=== PATIENT | male | born 1950 | race Asian ===

== ENCOUNTER 2016-06-05 23:23 | Inpatient (IN) | payer MEDICARE, OTHER ==
[2016-06-05] MEDS ORDERED: METHYLPREDNISOLONE INJ 125 MG/2 ML SDV IV ONE (23:43)
[2016-06-05] MEDS ORDERED: IPRATROPIUM/ALBUTEROL 0.5-2.5 MG/3 ML AMPUL NEB ONE (23:43)
[2016-06-05] MEDS ORDERED: ALBUTEROL SULFATE 0.083% NEB 2.5 MG/3 ML AMPUL NEB ONE (23:43)
--- NOTE | 2016-06-05 23:53 | ER Document Report ---
ED Respiratory Problem - General Chief Complaint: Breathing Difficulty Stated Complaint: TROUBLE BREATHING Time seen by provider: 23:53 Mode of Arrival: Ambulatory Information source: Patient, Relative - TRAVEL OUTSIDE OF THE [place] IN LAST 30 DAYS: No - HPI Patient complains to provider of: Asthma, COPD, Cough, Short of breath Onset: This morning Duration: Worse/persistent Quality of pain: No pain Severity: Moderate Context: Hx COPD, Smoker Short of Breath: Moderate Chest pain/discomfort: Tightness Cough: Nonproductive At home treatment: Bronchodilators Associated symptoms: Congestion, Cough, Difficulty breathing, Short of breath, Wheezing Similar symptoms previously: Yes Recently seen / treated by doctor: No Notes: Patient is a 66-year-old male who is a smoker and has a reported history of asthma, who presents to the emergency room complaining of difficulty breathing with a dry cough and chest tightness that started early in the morning and worsened throughout the day, he has used albuterol at home with minimal relief, he denies any sick contacts, no recent travel - Related Data Allergies/Adverse Reactions: diphenhydramine [From Benadryl] Adverse Reaction (Intermediate, Verified 00:23) ibuprofen [From Motrin] Adverse Reaction (Intermediate, Verified 06/06/16 00:29) Bleeding Past Medical History - General Information source: Patient, Relative - - Social History Smoking Status: Current Every Day Smoker Frequency of alcohol use: None Drug Abuse: None Family History: Reviewed & Not Pertinent Renal/ Medical History: Denies: Hx Peritoneal Dialysis Review of Systems - Review of Systems Constitutional: No symptoms reported EENT: No symptoms reported Cardiovascular: No symptoms reported Respiratory: See HPI Gastrointestinal: No symptoms reported Genitourinary: No symptoms reported Male Genitourinary: No symptoms reported Musculoskeletal: No symptoms reported Skin: No symptoms reported Hematologic/Lymphatic: No symptoms reported Neurological/Psychological: No symptoms reported -: Yes All other systems reviewed and negative Physical Exam - Vital signs Vitals: Resp 24 H 06/05/16 23:30 Interpretation: Normal - General General appearance: Appears well, Alert - HEENT Head: Normocephalic, Atraumatic Eyes: Normal Pupils: PERRL - Respiratory Respiratory status: Respiratory distress, Labored, Tachypnea Chest status: Nontender Breath sounds: Decreased air movement, Nonproductive cough, Wheezing Chest palpation: Normal - Cardiovascular Rhythm: Regular Heart sounds: Normal auscultation Murmur: No - Abdominal Inspection: Normal, Other - Healed midline scar Distension: No distension Bowel sounds: Normal Tenderness: Nontender Organomegaly: No organomegaly - Back Back: Normal, Nontender - Extremities General upper extremity: Normal inspection, Nontender, Normal color, Normal ROM , Normal temperature General lower extremity: Normal inspection, Nontender, Normal color, Normal ROM , Normal temperature, Normal weight bearing. No: Christopher's sign - Neurological Neuro grossly intact: Yes Cognition: Normal Orientation: AAOx4 Samy Coma Scale Eye Opening: Spontaneous Samy Coma Scale Verbal: Oriented Samy Coma Scale Motor: Obeys Commands Samy Coma Scale Total: 15 Speech: Normal Motor strength normal: LUE, RUE, LLE, RLE Sensory: Normal - Psychological Associated symptoms: Normal affect, Normal mood - Skin Skin Temperature: Warm Skin Moisture: Dry Skin Color: Normal Course - Re-evaluation Re-evalutation: 06/06/16 02:50 Patient hypoxic and tachycardic on arrival with difficulty breathing that started earlier in the day and Crestor the day, symptoms likely result of smoking and COPD, however a CTA was performed to rule out a PE, no PE was seen but worsening diffuse interstitial lung markings consistent with chronic lung disease were seen, patient had multiple breathing treatments in the emergency room with moderate relief of symptoms, however still continues to have diffuse wheezing with a pulse ox in the 88-92 range, he did briefly remove his oxygen and his pulse ox dropped down to 85%, therefore patient was discussed with the hospitalist who agrees to admit for further evaluation and treatment - Vital Signs Vital signs: Temp Pulse Resp BP Pulse Ox 98.6 F 113 H 24 H 144/65 H 91 L 06/05/16 23:33 06/05/16 23:33 06/05/16 23:33 06/05/16 23:33 06/06/16 00:00 - Laboratory Result Diagrams: 06/06/16 00:15 06/06/16 00:15 Laboratory results interpreted by me: 06/06/16 06/06/16 00:15 00:15 WBC 12.8 H RBC 4.11 L Hgb 11.8 L Hct 37.8 L MCHC 31.1 L RDW 14.2 H Seg Neutrophils % 83.8 H Lymphocytes % 8.1 L Absolute Neutrophils 10.7 H BUN 23 H Calcium 10.4 H Creatine Kinase 544 H - Diagnostic Test Radiology reviewed: Image reviewed, Reports reviewed - EKG Interpretation by Me EKG shows normal: Sinus rhythm Rate: Tachycardia - Transfer of Care Care transferred to following provider: Dr. Montenegro Critical Care Note - Critical Care Note Total time excluding time spent on procedures (mins): 40 Comments: Patient arrived hypoxic and tachycardic, requiring multiple breathing treatments , close observation and admission for COPD exacerbation Discharge - Discharge Clinical Impression: COPD exacerbation Condition: Fair Disposition: ADMITTED INPATIENT Admitting Provider: Hospitalist Unit Admitted: Telemetry
[2016-06-06 00:37] LABS: VENOUS BLOOD BASE EXCESS 2.5 mmol/L; VENOUS BLOOD HCO3 29.2 mmol/L (20-32); VENOUS BLOOD PCO2 53.2 mmHg (35-63); VENOUS BLOOD PH 7.36 (7.30-7.42)
[2016-06-06 00:38] LABS: ABSOLUTE BASOPHILS # (AUTO) 0.1 10^3/uL (0.0-0.2); ABSOLUTE EOSINOPHILS # (AUTO) 0.1 10^3/uL (0.0-0.6); ABSOLUTE MONOCYTES (AUTO) 0.8 10^3/uL (0.1-1.4); ABSOLUTE NEUT (AUTO) 10.7 10^3/uL (1.7-8.2); BASOPHILS % (AUTO) 0.5 % (0-2); EOSINOPHILS % (AUTO) 1.2 % (0-6); HEMATOCRIT 37.8 % (37.9-51.0); HEMOGLOBIN 11.8 g/dL (13.5-17.0); HGB HCT DIFFERENCE -2.4; LYMPHOCYTES % (AUTO) 8.1 % (13-45); MEAN CORPUSCULAR HEMOGLOBIN 28.6 pg (27.0-33.4); MEAN CORPUSCULAR HGB CONC 31.1 g/dL (32.0-36.0); MEAN CORPUSCULAR VOLUME 92 fl (80-97); MONOCYTES % (AUTO) 6.4 % (3-13); RED BLOOD COUNT 4.11 10^6/uL (4.35-5.55); RED CELL DISTRIBUTION WIDTH 14.2 % (11.5-14.0); SEGMENTED NEUTROPHILS % (AUTO) 83.8 % (42-78); WHITE BLOOD COUNT 12.8 10^3/uL (4.0-10.5)
[2016-06-06 00:58] LABS: ALANINE AMINOTRANSFERASE 42 U/L (21-72); ALBUMIN 4.1 g/dL (3.5-5.0); ALKALINE PHOSPHATASE 73 U/L (38-126); ANION GAP 14 (5-19); ASPARTATE AMINO TRANSFERASE 30 U/L (17-59); BILIRUBIN,TOTAL 0.3 mg/dL (0.2-1.3); BLOOD UREA NITROGEN 23 mg/dL (7-20); CALCIUM 10.4 mg/dL (8.4-10.2); CARBON DIOXIDE 28 mmol/L (22-30); CHLORIDE 103 mmol/L (98-107); CREATINE KINASE 544 U/L (55-170); CREATININE RESULT 1.18 mg/dL (0.52-1.25); GLUCOSE 96 mg/dL (75-110); MAGNESIUM 1.7 mg/dL (1.6-2.3); POTASSIUM 4.4 mmol/L (3.6-5.0); SODIUM 144.7 mmol/L (137-145); TOTAL PROTEIN 6.9 g/dL (6.3-8.2)
[2016-06-06 01:14] LABS: CREATINE KINASE MB 2.89 ng/mL (<4.55); TROPONIN I 0.012 ng/mL
[2016-06-06] MEDS ORDERED: ALBUTEROL SULFATE 0.083% NEB 2.5 MG/3 ML AMPUL NEB ONE ×2 (01:22→02:34)
[2016-06-06] MEDS ORDERED: AZITHROMYCIN INJ 500 MG VIAL IV ONE (02:34)
[2016-06-06] MEDS ORDERED: IPRATROPIUM/ALBUTEROL 0.5-2.5 MG/3 ML AMPUL NEB ONE (02:34)
[2016-06-06] MEDS ORDERED: FENTANYL CITRATE INJ/PF 100 MCG/2 ML AMPUL ONE (03:21)
[2016-06-06] MEDS ORDERED: GLUCAGON,HUMAN RECOMB 1 MG INJ IM PRN (03:32)
[2016-06-06] MEDS ORDERED: DEXTROSE 40% GEL 15 GM TUBE PO PRN ×2 (03:32)
[2016-06-06] MEDS ORDERED: DEXTROSE 50%-WATER 25 GM/50 ML DISP.SYRIN IV PRN ×2 (03:32)
[2016-06-06] MEDS ORDERED: ACETAMINOPHEN 325 MG TABLET PO PRN (03:35)
[2016-06-06] MEDS ORDERED: GUAIFENESIN SYRP 200 MG/10 ML UDC PO PRN (03:35)
[2016-06-06] MEDS ORDERED: ALBUTEROL SULFATE 0.083% NEB 2.5 MG/3 ML AMPUL NEB PRN (03:35)
[2016-06-06] MEDS ORDERED: NICOTINE 14 MG/24 HR PATCH.TD24 TD PRN (03:36)
[2016-06-06] MEDS ORDERED: METHYLPREDNISOLONE INJ 125 MG/2 ML SDV IV ONE (03:45)
--- NOTE | 2016-06-06 03:55 | PDOC H&P ---
History of Present Illness Admission Date/PCP: 06/06/16 02:43 [facility] Patient complains of: difficulty breathing History of Present Illness: MARTÍN SILVA is a 66 year old male is known underlying asthma, having undergone COPD testing one week ago, with results still pending, along with half pack-a-day smoker, who presents to the emergency room for evaluation of above complaint. Patient has been discussed with emergency room physician who evaluated the patient. Has had a dry cough and mild chest discomfort for the past several days. However, over the last 24 hours, he has had progressive difficulty breathing, particularly noticeable with much of any exertion. Was in significant respiratory distress upon arrival in the emergency room, but has progressed nicely with treatment so far. However, still some wheezing, which he does on most days, and some shortness of breath, along with oxygen requirement. Hospitalist service contacted for admission. Subjective fever. No nausea vomiting or diarrhea. No antibiotics or hospital stay in the last 3 months. No prior intubation for respiratory distress. Mild chest tightness and discomfort when his shortness of breath is worse. None at present.. Laboratory results are listed in [facility] and are reviewed. X-ray summary results are listed below, with full report(s) reviewed. . EKG reviewed. Social history/personal habits: . Has children. Retired. Half-pack of cigarettes per day. No alcohol or illicit drug use. Allergies/adverse reactions are listed in [facility] and are reviewed. Home medications are reviewed by bottle review and discussion with patient and , who is present at his side with his approval, and [facility] Home medications initially autopopulated into [facility] may not accurately reflect patient's true medications, dosages, and/or frequencies. Compliant with medications. No recent medication changes. REVIEW OF SYSTEMS: Constitutional: See history and present illness. Eyes: No current vision complaints. ENT: No swallowing problems or complaints. No hearing problems or complaints. Pulmonary: See history and present illness. Cardiovascular: See history and present illness. Gastrointestinal: No current complaints, including nausea or vomiting. Skin: No current complaints, including rashes. Hematologic: No unusual easy bruising or bleeding. Neurologic: No current complaints, including numbness or tingling. Musculoskeletal: No current complaints, including painful joints. Psychiatric: No current complaints, including anxiety or depression. Endocrine: No current complaints, including polyuria. Genitourinary: No current complaints, including dysuria. PHYSICAL EXAMINATION: 5 feet 5 inches tall. 92.1 kg. Blood pressure 123/94. Pulse 118 and regular. Respirations are 22 and unlabored. 91% saturation on 2 L oxygen per nasal cannula. Temperature 98.6. Obese otherwise well-developed probable Samoan male, who appears to feel a bit under the weather, so to speak. Pleasant awake alert and cooperative however. mildly anxious, without agitation. Skin is warm and dry. No grossly obvious evidence of rash in areas of skin examined. No subcutaneous nodules palpated. ENT: Hearing grossly normal to normal conversation. Tongue midline on protrusion pink and slightly tacky. Eyes: No scleral icterus. Pupils equal and reactive to light at 4 mm. Ortley conjunctivae. Neck is supple and nontender to gentle active range of motion and palpation. Midline trachea. No palpable thyroid nodule mass enlargement or tenderness. Lymphatic: No palpable cervical or clavicular nodes. Neck and lymphatic exams limited by patient body habitus. Psychiatric: Reasonable insight into acute and chronic medical issues. Oriented to time location and why here. Lungs: Auscultation reveals equal breath sounds bilaterally. No use of accessory respiratory muscles. Faint brief expiratory wheezing bilaterally, with mild diffuse slightly coarse breath sounds. Cardiovascular: Heart regular rate and rhythm, without gallop murmur or rub. No carotid or abdominal aortic bruits. No ankle or pedal edema. palpable dorsalis pedis pulses. Abdomen: soft, obese, nontender with positive bowel sounds. Unable to adequately evaluate abdomen for masses or organomegaly due to body habitus. Extremities: Feet are warm and dry. No calf tenderness to compression. No grossly obvious visual evidence of calf swelling. Gentle manipulation of lower extremities fails to reveal any obvious evidence of injury or instability to knees hips or ankles. Neurologic: Moves upper extremities grossly normally. Patellar reflexes absent. Absent Babinski. Light touch is intact at feet. Dorsiflexion and plantarflexion of feet 5 / 5 and symmetric. Past Medical History Cardiac Medical History: Reports: Hypertension Pulmonary Medical History: Reports: Asthma Endocrine Medical History: Reports: Diabetes Mellitus Type 2 Past Surgical History Past Surgical History: Reports: Other - Segmental colectomy in the for colon cancer. Social History Information Source: Patient, Emergency Med Personnel, [facility] Records Lives with: Spouse/Significant other Smoking Status: Current Every Day Smoker Frequency of Alcohol Use: None Drugs: None - Advance Directive Resuscitation Status: Full Code Surrogate healthcare decision maker:: Family History Family History: Reviewed & Not Pertinent Parental Family History Reviewed: Yes Children Family History Reviewed: Yes Sibling(s) Family History Reviewed.: Yes Medication/Allergy Home Medications: Albuterol Sulfate [Proair HFA] 2 puff IH Q4HP PRN 06/06/16 Atorvastatin Calcium 40 mg PO QHS 06/06/16 Fexofenadine HCl 180 mg PO DAILY 06/06/16 Fluticasone/Salmeterol [Advair 250-50 Diskus] 1 puff IH BID 06/06/16 Metformin HCl [Metformin HCl ER] 500 mg PO BID 06/06/16 Montelukast Sodium 10 mg PO QHS 06/06/16 Tamsulosin HCl 0.8 mg PO DAILY 06/06/16 Benazepril HCl [Lotensin 20 mg Tablet] 40 mg PO QAM #60 tablet 06/08/16 Levalbuterol HCl [Xopenex Neb 1.25 mg/3 ml Ampul] 1.25 mg NEB Q4H #60 vial.neb 06/08/16 Levofloxacin [Levaquin 750 mg Tablet] 750 mg PO DAILY #5 tablet 06/08/16 Metoprolol Tartrate [Lopressor 25 mg Tablet] 25 mg PO Q12 #60 tab 06/08/16 Prednisone [Sterapred Ds] 1 pkg PO ASDIR PRN 12 Days 06/08/16 Tiotropium [place] [Spiriva Handihaler 18 mcg/dose (30 Dose)] 1 cap IH DAILY # 30 capsule 06/08/16 Allergies/Adverse Reactions: diphenhydramine [From Benadryl] Adverse Reaction (Intermediate, Verified 00:23) ibuprofen [From Motrin] Adverse Reaction (Intermediate, Verified 06/06/16 00:29) Bleeding Physical Exam Vital Signs: Temp Pulse Resp BP Pulse Ox 98.6 F 113 H 24 H 144/65 H 91 L 06/05/16 23:33 06/05/16 23:33 06/05/16 23:33 06/05/16 23:33 06/06/16 00:00 Results Impressions: Chest X-Ray 06/05/16 23:42 IMPRESSION: Worsened moderate chronic interstitial lung disease pattern. Chest/Abdomen CTA 06/06/16 01:22 IMPRESSION: 1. No evidence of pulmonary emboli. 2. Moderate chronic interstitial lung disease pattern. Interval worsening. 3. 1.9 cm right adrenal adenoma. Assessment & Plan - Diagnosis (1) Adrenal adenoma Qualifiers: Laterality: right Qualified Code(s): D35.01 - Benign neoplasm of right adrenal gland Is this a current diagnosis for this admission?: YesPlan: Outpatient follow-up by primary care provider. (2) Asthma exacerbation Is this a current diagnosis for this admission?: YesPlan: Patient will be admitted under COPD and asthma exacerbation protocol. Incentive spirometry twice a day. Scheduled DuoNeb's. PRN albuterol nebs Solu-Medrol Prevacid for gastritis prophylaxis. Antibiotics will consist of intravenous Zithromax along with Rocephin.. I strongly encouraged patient to notify staff should patient feel that respiratory status is worsening. Patient is a full code. I have strongly encouraged patient not to get out of bed without notifying staff , , to avoid a fall with injury. Knee high SCDs for DVT prophylaxis, along with subcutaneous Lovenox Impression and plans were discussed with patient, and , both of whom concur. Time spent in evaluation and management of patient: 70 minutes. (3) Diabetes mellitus type 2 in obese Is this a current diagnosis for this admission?: YesPlan: Ice chips at the present time. Advance diet as tolerated. Resume home medications as appropriate once these have been reviewed. We'll hold metformin given his CT angiogram. Accu-Cheks with appropriate sliding scale coverage. (4) HTN (hypertension) Qualifiers: Hypertension type: essential hypertension Qualified Code(s): I10 - Essential (primary) hypertension Is this a current diagnosis for this admission?: YesPlan: Resume home medications as appropriate once these have been reviewed. (5) Hyperlipidemia Qualifiers: Hyperlipidemia type: unspecified Qualified Code(s): E78.5 - Hyperlipidemia, unspecified Is this a current diagnosis for this admission?: YesPlan: Resume home medications as appropriate once these have been reviewed. (6) Tobacco dependency Is this a current diagnosis for this admission?: YesPlan: When necessary nicotine patch. (7) COPD exacerbation Is this a current diagnosis for this admission?: Yes - Inpatient Certification Based on my medical assessment, after consideration of the patient's comorbidities, presenting symptoms, or acuity I expect that the services needed warrant INPATIENT care.: Yes I certify that my determination is in accordance with my understanding of Medicare's requirements for reasonable and necessary INPATIENT services [42 CFR 412.3e].: Yes Medical Necessity: Need Close Monitoring Due to Risk of Patient Decompensation, Need For IV Fluids, Need For Continuous Telemetry Monitoring, Need for Nebulizer Therapy and Monitoring of Response, Need for IV Antibiotics, Risk of Complication if Not Cared For in Hospital Post Hospital Care: D/C or Transfer Summary
[2016-06-06] MEDS ORDERED: CEFTRIAXONE 1 GM/D5W RTU 1 GM/50 ML RTUPB IV ONE (04:00)
[2016-06-06 04:07] LABS: VENOUS BLOOD BASE EXCESS -0.7 mmol/L; VENOUS BLOOD HCO3 24.7 mmol/L (20-32); VENOUS BLOOD PCO2 43.6 mmHg (35-63); VENOUS BLOOD PH 7.37 (7.30-7.42)
[2016-06-06] MEDS: LANSOPRAZOLE 30 MG TAB.RAP.DR PO SCH (05:58)
[2016-06-06] MEDS: 1/2 NORMAL SALINE 1,000 ML IV PRN ×2 (06:02→18:50)
[2016-06-06] MEDS: INSULIN LISPRO 100 UNIT/ML 3 ML VIAL SUBCUT PRN ×2 (06:20→17:22)
[2016-06-06] MEDS ORDERED: (PENDING PHARMACY ID) (Amlodipine Besylate/Benazepril [Amlodipine-Benazepril 10-40 Mg] 1 C PO SCH (08:00)
[2016-06-06] MEDS: IPRATROPIUM/ALBUTEROL 0.5-2.5 MG/3 ML AMPUL NEB SCH ×3 (08:49→20:41)
[2016-06-06] MEDS: ENOXAPARIN SODIUM INJ 40 MG/0.4 ML DISP.SYRIN SUBCUT SCH (08:59)
[2016-06-06] MEDS: FLUTICASONE/SALMETEROL DISKUS 250-50 MCG/DOSE IH SCH ×2 (09:01→21:10)
[2016-06-06] MEDS: METHYLPREDNISOLONE INJ 125 MG/2 ML SDV IV SCH ×2 (09:05→17:10)
[2016-06-06] MEDS: BENAZEPRIL HCL 20 MG TABLET PO SCH (09:06)
[2016-06-06] MEDS: AMLODIPINE BESYLATE 10 MG TABLET PO SCH (09:07)
[2016-06-06] MEDS: TAMSULOSIN HCL 0.4 MG CAP.SR.24H PO SCH (09:08)
--- NOTE | 2016-06-06 09:23 | EKG REPORT ---
SEVERITY:- OTHERWISE NORMAL ECG - SINUS TACHYCARDIA : Confirmed by: Keya Mckinley MD 06-Jun-2016 09:22:49
[2016-06-06] MEDS ORDERED: (PENDING PHARMACY ID) (Fexofenadine Hcl [Fexofenadine Hcl] 180 MG) PO SCH (10:00)
[2016-06-06] MEDS: CETIRIZINE 10 MG TABLET PO SCH (14:45)
[2016-06-06] MEDS: AZITHROMYCIN 500 MG in DEXTROSE 5%-WATER 250 ML IV SCH (14:46)
[2016-06-06] MEDS: ATORVASTATIN CALCIUM 40 MG TABLET PO SCH (21:09)
[2016-06-06] MEDS: CEFTRIAXONE 1 GM/D5W RTU 1 GM/50 ML RTUPB IV SCH (21:09)
[2016-06-06] MEDS: MONTELUKAST SODIUM 10 MG TABLET PO SCH (21:10)
[2016-06-07] MEDS: METHYLPREDNISOLONE INJ 125 MG/2 ML SDV IV SCH ×2 (02:19→10:14)
[2016-06-07] MEDS: 1/2 NORMAL SALINE 1,000 ML IV PRN (03:54)
[2016-06-07 05:18] LABS: HEMATOCRIT 36.5 % (37.9-51.0); HEMOGLOBIN 11.7 g/dL (13.5-17.0); HGB HCT DIFFERENCE -1.4; MEAN CORPUSCULAR HEMOGLOBIN 29.1 pg (27.0-33.4); MEAN CORPUSCULAR HGB CONC 32.2 g/dL (32.0-36.0); MEAN CORPUSCULAR VOLUME 91 fl (80-97); RED BLOOD COUNT 4.03 10^6/uL (4.35-5.55); RED CELL DISTRIBUTION WIDTH 14.6 % (11.5-14.0); WHITE BLOOD COUNT 16.6 10^3/uL (4.0-10.5)
[2016-06-07 05:34] LABS: ANION GAP 13 (5-19); BLOOD UREA NITROGEN 24 mg/dL (7-20); CALCIUM 10.1 mg/dL (8.4-10.2); CARBON DIOXIDE 27 mmol/L (22-30); CHLORIDE 110 mmol/L (98-107); CREATININE RESULT 1.14 mg/dL (0.52-1.25); GLUCOSE 163 mg/dL (75-110); POTASSIUM 4.7 mmol/L (3.6-5.0); SODIUM 149.7 mmol/L (137-145)
[2016-06-07] MEDS: LANSOPRAZOLE 30 MG TAB.RAP.DR PO SCH (05:46)
[2016-06-07 05:50] LABS: ANISOCYTOSIS SLIGHT; BAND NEUTROPHILS % (MANUAL) 5 % (3-5); BASOPHILS % (MANUAL) 0 % (0-2); EOSINOPHILS % (MANUAL) 0 % (0-6); LYMPHOCYTES % (MANUAL) 4 % (13-45); OVALOCYTES SLIGHT; TOTAL CELLS COUNTED 100; TOXIC GRANULATION SLIGHT
[2016-06-07] MEDS: ENOXAPARIN SODIUM INJ 40 MG/0.4 ML DISP.SYRIN SUBCUT SCH (07:49)
[2016-06-07] MEDS: INSULIN LISPRO 100 UNIT/ML 3 ML VIAL SUBCUT PRN ×3 (07:49→18:04)
[2016-06-07] MEDS: AMLODIPINE BESYLATE 10 MG TABLET PO SCH (07:50)
[2016-06-07] MEDS: IPRATROPIUM/ALBUTEROL 0.5-2.5 MG/3 ML AMPUL NEB SCH (08:26)
[2016-06-07] MEDS ORDERED: BENAZEPRIL HCL 20 MG TABLET PO ONE (09:00)
[2016-06-07] MEDS ORDERED: AMLODIPINE BESYLATE 10 MG TABLET PO ONE (09:00)
[2016-06-07] MEDS: AZITHROMYCIN 500 MG in DEXTROSE 5%-WATER 250 ML IV SCH (10:14)
[2016-06-07] MEDS: FLUTICASONE/SALMETEROL DISKUS 250-50 MCG/DOSE IH SCH ×2 (10:14→21:58)
[2016-06-07] MEDS: TAMSULOSIN HCL 0.4 MG CAP.SR.24H PO SCH (10:14)
[2016-06-07] MEDS: CETIRIZINE 10 MG TABLET PO SCH (10:21)
[2016-06-07] MEDS ORDERED: LEVALBUTEROL HCL NEB 1.25 MG/3 ML AMPUL NEB PRN (11:10)
[2016-06-07] MEDS ORDERED: 1/2 NORMAL SALINE 1,000 ML IV PRN (11:14)
--- NOTE | 2016-06-07 11:22 | PDOC PROGRESS REPORT ---
Subjective Progress Note for:: 06/07/16 Subjective:: Patient is breathing better. Wheezing is less. Shortness of breath improved by 50%. Positive cough but no pleurisy. No chest pressure. No diarrhea, no chills or fever. No nausea vomiting abdominal pain. Physical Exam Vital Signs: Temp Pulse Resp BP Pulse Ox 98.2 F 104 H 16 142/85 H 92 06/07/16 07:36 06/07/16 08:26 06/07/16 08:26 06/07/16 07:36 06/07/16 07:36 Intake & Output 06/06/16 06/07/16 06/08/16 06:59 06:59 06:59 Intake Total 3949 Output Total 650 Balance 3299 Weight 87 kg General appearance: PRESENT: no acute distress, obese Head exam: PRESENT: normocephalic Eye exam: PRESENT: EOMI, PERRLA Mouth exam: PRESENT: moist, neck supple Neck exam: ABSENT: JVD Respiratory exam: PRESENT: wheezes - Minimal bilateral, other - Air entry is fair to good. Cardiovascular exam: PRESENT: RRR, tachycardia GI/Abdominal exam: PRESENT: normal bowel sounds, soft. ABSENT: distended, tenderness Extremities exam: ABSENT: pedal edema Neurological exam: PRESENT: alert, awake, oriented to situation Skin exam: PRESENT: dry, warm. ABSENT: cyanosis Results Laboratory Results: 06/07/16 04:54 06/07/16 04:54 06/07/16 06/07/16 04:54 04:54 WBC 16.6 H RBC 4.03 L Hgb 11.7 L Hct 36.5 L MCV 91 MCH 29.1 MCHC 32.2 RDW 14.6 H Plt Count 274 Seg Neutrophils % Not Reportable Lymphocytes % Not Reportable Monocytes % Not Reportable Eosinophils % Not Reportable Basophils % Not Reportable Absolute Neutrophils Not Reportable Absolute Lymphocytes Not Reportable Absolute Monocytes Not Reportable Absolute Eosinophils Not Reportable Absolute Basophils Not Reportable Sodium 149.7 H Potassium 4.7 Chloride 110 H Carbon Dioxide 27 Anion Gap 13 BUN 24 H Creatinine 1.14 Est GFR ( Amer) > 60 Est GFR (Non-Af Amer) > 60 Glucose 163 H Calcium 10.1 Impressions: Chest X-Ray 06/05/16 23:42 IMPRESSION: Worsened moderate chronic interstitial lung disease pattern. Chest/Abdomen CTA 06/06/16 01:22 IMPRESSION: 1. No evidence of pulmonary emboli. 2. Moderate chronic interstitial lung disease pattern. Interval worsening. 3. 1.9 cm right adrenal adenoma. Assessment & Plan - Diagnosis (1) COPD exacerbation Is this a current diagnosis for this admission?: Yes (2) Interstitial lung disease Is this a current diagnosis for this admission?: Yes (3) Adrenal adenoma Qualifiers: Laterality: right Qualified Code(s): D35.01 - Benign neoplasm of right adrenal gland Is this a current diagnosis for this admission?: Yes (4) Diabetes mellitus type 2 in obese Is this a current diagnosis for this admission?: Yes (5) HTN (hypertension) Qualifiers: Hypertension type: essential hypertension Qualified Code(s): I10 - Essential (primary) hypertension Is this a current diagnosis for this admission?: Yes (6) Hyperlipidemia Qualifiers: Hyperlipidemia type: unspecified Qualified Code(s): E78.5 - Hyperlipidemia, unspecified Is this a current diagnosis for this admission?: Yes - Time Time Spent with patient: 25-34 minutes - Plan Summary Plan Summary: Patient is wanting to go home. I advised him to stay for an order today and hopefully by tomorrow we will be able to. We are going to switch the patient to oral steroids. Discontinue albuterol as switched to Xopenex. Continue ipratropium. Decrease intravenous fluids. Add Spiriva. Continue supportive care.
[2016-06-07] MEDS ORDERED: PREDNISONE 20 MG TABLET PO ONE (13:00)
[2016-06-07] MEDS: IPRATROPIUM BROMIDE 0.02% NEB 0.5 MG/2.5 ML AMPUL NEB SCH ×2 (14:19→20:05)
[2016-06-07] MEDS: LEVALBUTEROL HCL NEB 1.25 MG/3 ML AMPUL NEB SCH ×2 (14:19→20:05)
[2016-06-07] MEDS: METOPROLOL TARTRATE 25 MG TABLET PO SCH (20:46)
[2016-06-07] MEDS: ATORVASTATIN CALCIUM 40 MG TABLET PO SCH (21:58)
[2016-06-07] MEDS: MONTELUKAST SODIUM 10 MG TABLET PO SCH (21:58)
[2016-06-07] MEDS: CEFTRIAXONE 1 GM/D5W RTU 1 GM/50 ML RTUPB IV SCH (21:59)
[2016-06-08] MEDS: METOPROLOL TARTRATE 25 MG TABLET PO SCH ×2 (01:17→05:37)
[2016-06-08] MEDS: LEVALBUTEROL HCL NEB 1.25 MG/3 ML AMPUL NEB SCH ×2 (02:15→08:21)
[2016-06-08] MEDS: IPRATROPIUM BROMIDE 0.02% NEB 0.5 MG/2.5 ML AMPUL NEB SCH ×2 (02:15→08:20)
[2016-06-08] MEDS: LANSOPRAZOLE 30 MG TAB.RAP.DR PO SCH (05:38)
[2016-06-08] MEDS: BENAZEPRIL HCL 20 MG TABLET PO SCH (08:14)
[2016-06-08] MEDS: ENOXAPARIN SODIUM INJ 40 MG/0.4 ML DISP.SYRIN SUBCUT SCH (08:14)
[2016-06-08 09:16] VITALS: BP 128/86
[2016-06-08] MEDS: CETIRIZINE 10 MG TABLET PO SCH (09:54)
[2016-06-08] MEDS: FLUTICASONE/SALMETEROL DISKUS 250-50 MCG/DOSE IH SCH (09:54)
[2016-06-08] MEDS: TAMSULOSIN HCL 0.4 MG CAP.SR.24H PO SCH (09:54)
[2016-06-08] MEDS: AZITHROMYCIN 500 MG in DEXTROSE 5%-WATER 250 ML IV SCH (09:55)
--- NOTE | 2016-06-08 09:55 | PDOC DISCHARGE SUMMARY ---
General - Admit/Disc Date/PCP Admission Date/Primary Care Provider: 06/06/16 03:35 Discharge Date: 06/08/16 - Discharge Diagnosis (1) COPD exacerbation Is this a current diagnosis for this admission?: Yes (2) Interstitial lung disease Is this a current diagnosis for this admission?: Yes (3) Adrenal adenoma Is this a current diagnosis for this admission?: Yes (4) Diabetes mellitus type 2 in obese Is this a current diagnosis for this admission?: Yes (5) HTN (hypertension) Is this a current diagnosis for this admission?: Yes (6) Hyperlipidemia Is this a current diagnosis for this admission?: Yes - Additional Information Resuscitation Status: Full Code Discharge Diet: Cardiac - low-fat low-salt, Diabetic - no concentrated sweets Discharge Activity: Activity As Tolerated, Balance Activity w/Rest Home Medications: Albuterol Sulfate [Proair HFA] 2 puff IH Q4HP PRN 06/06/16 Atorvastatin Calcium 40 mg PO QHS 06/06/16 Fexofenadine HCl 180 mg PO DAILY 06/06/16 Fluticasone/Salmeterol [Advair 250-50 Diskus] 1 puff IH BID 06/06/16 Metformin HCl [Metformin HCl ER] 500 mg PO BID 06/06/16 Montelukast Sodium 10 mg PO QHS 06/06/16 Tamsulosin HCl 0.8 mg PO DAILY 06/06/16 Benazepril HCl [Lotensin 20 mg Tablet] 40 mg PO QAM #60 tablet 06/08/16 Levalbuterol HCl [Xopenex Neb 1.25 mg/3 ml Ampul] 1.25 mg NEB Q4H #60 vial.neb 06/08/16 Levofloxacin [Levaquin 750 mg Tablet] 750 mg PO DAILY #5 tablet 06/08/16 Metoprolol Tartrate [Lopressor 25 mg Tablet] 25 mg PO Q12 #60 tab 06/08/16 Prednisone [Sterapred Ds] 1 pkg PO ASDIR PRN 12 Days 06/08/16 Tiotropium [place] [Spiriva Handihaler 18 mcg/dose (30 Dose)] 1 cap IH DAILY # 30 capsule 06/08/16 Additional Information: Follow-up final report of sputum culture and blood culture as outpatient with primary care physician or Dr. Stephens History of Present Illness Patient complains of: Shortness of breath History of Present Illness: MARTÍN SILVA is a 66 year old male with history of asthma and diabetes hypertension and a chronic smoker presents to the hospital with shortness of breath. There is associated coughing and wheezing. Patient has significant shortness of breath on exertion. Patient was recently tested for COPD and result is pending. For details please refer to history and physical examination performed by the admitting physician. Hospital Course Hospital Course: The patient was admitted to [facility]. Supplemental oxygen was given. Intravenous steroids and [id number] nebulizer was given. Intravenous antibiotic was likewise started. Patient improved. Patient however has tachycardia and the patient has dyspnea on exertion and noted increasing heart rate with activity. His albuterol was shifted to Xopenex. His Norvasc was shifted to metoprolol. Heart rate improved dyspnea on exertion improved significantly as well. Patient reports improvement. Wheezing has resolved. Patient wanted to go home and continue treatment on an outpatient basis. The rest of the hospital stays essentially unremarkable. Patient was discharged home with above instructions. Physical Exam Vital Signs: Temp Pulse Resp BP Pulse Ox 98.0 F 76 15 128/86 H 90 L 06/08/16 08:12 06/08/16 08:20 06/08/16 08:20 06/08/16 08:12 06/08/16 08:20 Intake & Output 06/07/16 06/08/16 06/09/16 06:59 06:59 06:59 Intake Total 3949 6391 Output Total 650 Balance 3299 6391 Weight 87 kg 89.1 kg General appearance: PRESENT: no acute distress, cooperative Head exam: PRESENT: normocephalic Eye exam: PRESENT: EOMI, PERRLA Mouth exam: PRESENT: moist, neck supple Neck exam: ABSENT: JVD Respiratory exam: PRESENT: clear to auscultation marian. ABSENT: rhonchi, wheezes Cardiovascular exam: PRESENT: RRR. ABSENT: gallop GI/Abdominal exam: PRESENT: normal bowel sounds, soft. ABSENT: tenderness Extremities exam: ABSENT: pedal edema Psychiatric exam: PRESENT: normal mood Skin exam: PRESENT: dry, warm. ABSENT: cyanosis Results Laboratory Results: 06/07/16 04:54 06/07/16 04:54 Impressions: Chest X-Ray 06/05/16 23:42 IMPRESSION: Worsened moderate chronic interstitial lung disease pattern. Chest/Abdomen CTA 06/06/16 01:22 IMPRESSION: 1. No evidence of pulmonary emboli. 2. Moderate chronic interstitial lung disease pattern. Interval worsening. 3. 1.9 cm right adrenal adenoma. Qualifiers PATEINT BEING DISCHARGED WITH ANY OF THE FOLLOWING DIAGNOSIS?: No Plan Discharge Plan: Follow-up with primary care physician in one week. Follow-up with pulmonary as outpatient in 1-2 weeks. Time Spent: Less than 30 Minutes
[2016-06-08] MEDS ORDERED: PREDNISONE 20 MG TABLET PO SCH (10:00)
== END 2016-06-08 11:03 | disposition home or self-care (01) | DRG 191 ==
LOC: ER 23:23 → UNDOADMIN 06-06 02:43 → EH 06-06 02:43 → 3W 06-06 14:30
PROVIDERS: ADMIT Family Medicine; ATTEND Family Medicine
PROC: 3E0F73Z Introduction of Anti-inflammatory into Respiratory Tract, Via Natural or Artificial Opening (ICD-10-PCS; principal; 2016-06-06)
DX: J44.1 Chronic obstructive pulmonary disease with (acute) exacerbation (principal); J45.901 Unspecified asthma with (acute) exacerbation; J84.9 Interstitial pulmonary disease, unspecified; E11.9 Type 2 diabetes mellitus without complications; I10 Essential (primary) hypertension; E78.5 Hyperlipidemia, unspecified; F17.200 Nicotine dependence, unspecified, uncomplicated; D35.01 Benign neoplasm of right adrenal gland; Z79.899 Other long term (current) drug therapy; E66.9 Obesity, unspecified; Z68.32 Body mass index [BMI] 32.0-32.9, adult; Z90.49 Acquired absence of other specified parts of digestive tract; Z85.038 Personal history of other malignant neoplasm of large intestine; Z88.6 Allergy status to analgesic agent; Z88.8 Allergy status to other drugs, medicaments and biological substances
CPT/HCPCS: 36415; 71010; 71275; 80048; 80053; 82550; 82553; 82803; 82962; 83735; 84484; 85025; 87040; 87070; 87077; 87205; 87804; 93005; 93010; 94640; 94799; 96374; 99291; J0456; J0696; J1650; J1815; J2930; J3490; J7060; J7512; J7620

== ENCOUNTER → 2016-08-07 | Outpatient (CLI) | payer MEDICARE, OTHER ==
[2016-08-07 11:45] LABS: APPEARANCE,URINE CLEAR; BILIRUBIN,URINE NEGATIVE (NEGATIVE); GLUCOSE, URINE NEGATIVE (NEGATIVE); KETONES,URINE NEGATIVE (NEGATIVE); LEUKOCYTE ESTERASE,URINE NEGATIVE (NEGATIVE); NITRITE,URINE NEGATIVE (NEGATIVE); PROTEIN,URINE NEGATIVE (NEGATIVE); URINE SPECIFIC GRAVITY 1.003; UROBILINOGEN,URINE NEGATIVE mg/dL (<2.0)
[2016-08-07 11:48] LABS: HEMATOCRIT 37.7 % (37.9-51.0); HEMOGLOBIN 12.5 g/dL (13.5-17.0); HGB HCT DIFFERENCE -0.2; MEAN CORPUSCULAR HEMOGLOBIN 29.1 pg (27.0-33.4); MEAN CORPUSCULAR HGB CONC 33.1 g/dL (32.0-36.0); MEAN CORPUSCULAR VOLUME 88 fl (80-97); RED BLOOD COUNT 4.28 10^6/uL (4.35-5.55); RED CELL DISTRIBUTION WIDTH 14.1 % (11.5-14.0); WHITE BLOOD COUNT 11.7 10^3/uL (4.0-10.5)
[2016-08-07 12:17] LABS: ANION GAP 15 (5-19); BLOOD UREA NITROGEN 23 mg/dL (7-20); CALCIUM 10.6 mg/dL (8.4-10.2); CARBON DIOXIDE 25 mmol/L (22-30); CHLORIDE 107 mmol/L (98-107); CREATININE RESULT 1.18 mg/dL (0.52-1.25); GLUCOSE 119 mg/dL (75-110); POTASSIUM 3.9 mmol/L (3.6-5.0); SODIUM 146.7 mmol/L (137-145)
[2016-08-08 10:37] LABS: CREATININE URINE 22.5 mg/dL (Not Estab.)
== END ==
LOC: OD 10:30
PROVIDERS: ATTEND Internal Medicine Nephrology
DX: I12.9 Hypertensive chronic kidney disease with stage 1 through stage 4 chronic kidney disease, or unspecified chronic kidney disease (principal); N18.3 Chronic kidney disease, stage 3 (moderate); R80.9 Proteinuria, unspecified; E11.9 Type 2 diabetes mellitus without complications
CPT/HCPCS: 36415; 80048; 81001; 82570; 84156; 85027

== ENCOUNTER 2018-01-20 17:21 | Emergency (ER) | payer MEDICARE, OTHER ==
[2018-01-20] MEDS ORDERED: DIAZEPAM 5 MG TABLET PO ONE ×2 (17:42→19:44)
[2018-01-20] MEDS ORDERED: MECLIZINE HCL 25 MG TABLET PO ONE (17:42)
[2018-01-20] MEDS ORDERED: NORMAL SALINE 500 ML IV ONE (17:42)
--- NOTE | 2018-01-20 17:46 | ER Document Report ---
ED General - General Stated Complaint: DIZZINESS/VOMITING Time Seen by Provider: 01/20/18 17:29 Mode of Arrival: Ambulatory Information source: Patient Notes: 67-year-old male with hypertension, type 2 diabetes, COPD, asthma presents via EMS with complaint of dizziness, nausea and vomiting. Patient's is at the bedside and provides the majority of the history because the patient is hard of hearing. She states that patient has had intermittent episodes of dizziness over the last 3 days. She states that he says that he feels like the room is spinning. Patient does state that it is worse when he turns to his left side or sits up. Today the dizziness worsened and the patient had a large episode of emesis which was nonbloody. The was unable to get him to the car so she called EMS. Patient denies recent illness, prior similar symptoms, ear pain , rhinorrhea. Shortness of breath, chest pain, abdominal pain. He has been otherwise well. TRAVEL OUTSIDE OF THE [place] IN LAST 30 DAYS: No - HPI Onset: Just prior to arrival Onset/Duration: Sudden Quality of pain: No pain Severity: None Associated symptoms: Nausea, Vomiting. denies: Chest pain, Shortness of breath Exacerbated by: Movement Relieved by: Remaining still Similar symptoms previously: No Recently seen / treated by doctor: No - Related Data Allergies/Adverse Reactions: diphenhydramine [From Benadryl] Adverse Reaction (Intermediate, Verified 00:23) ibuprofen [From Motrin] Adverse Reaction (Intermediate, Verified 06/06/16 00:29) Bleeding Past Medical History - General Information source: Patient, Relative, [facility] Records - Social History Smoking Status: Former Smoker Frequency of alcohol use: None Drug Abuse: None Lives with: Spouse/Significant other Family History: Reviewed & Not Pertinent Patient has suicidal ideation: No Patient has homicidal ideation: No - Past Medical History Cardiac Medical History: Reports: Hx Hypertension Pulmonary Medical History: Reports: Hx Asthma Endocrine Medical History: Reports: Hx Diabetes Mellitus Type 2 Renal/ Medical History: Denies: Hx Peritoneal Dialysis Past Surgical History: Reports: Other - Segmental colectomy in the for colon cancer. - Immunizations Hx Diphtheria, Pertussis, Tetanus Vaccination: Yes Review of Systems - Review of Systems Notes: REVIEW OF SYSTEMS: CONSTITUTIONAL : Denies fever, chills, or sweats. Denies recent illness. Denies weight loss, recent hospitalizations. EENT: Denies visual changes, eye pain. Denies nasal or sinus congestion or discharge. Denies sore throat, oral lesions, difficulty swallowing. CARDIOVASCULAR: Denies chest pain. Denies palpitations. Denies lower extremity edema. RESPIRATORY: Denies cough, cold, or chest congestion. Denies shortness of breath, wheezing. GASTROINTESTINAL: Denies abdominal pain or distention. Denies diarrhea. Denies blood in vomitus, stools, or per rectum. Denies black, tarry stools. Denies constipation. GENITOURINARY: Denies difficulty urinating, painful urination, frequency, blood in urine, or vaginal discharge. MUSCULOSKELETAL: Denies back or neck pain or stiffness. Denies joint pain or swelling. SKIN: Denies rash, lesions or sores. HEMATOLOGIC : Denies easy bruising or bleeding. LYMPHATIC: Denies swollen glands. NEUROLOGICAL: Denies confusion or altered mental status. Denies passing out or loss of consciousness. Denies lightheadedness. Denies headache. Denies weakness or paralysis. Denies problems difficulty with ambulation, slurred speech. Denies sensory loss, numbness, or tingling. Denies seizures. PSYCHIATRIC: Denies anxiety or stress. Denies depression, suicidal ideation, or homicidal ideation. Denies visual or auditory hallucinations. Physical Exam - Vital signs Vitals: Resp BP Pulse Ox 17 161/85 H 89 L 01/20/18 17:27 01/20/18 17:27 01/20/18 17:27 - Notes Notes: PHYSICAL EXAMINATION: GENERAL: Well-appearing, well-nourished and in no acute distress. HEAD: Atraumatic, normocephalic. EYES: Pupils equal round and reactive to light, extraocular movements intact, sclera anicteric, conjunctiva are normal. Horizontal nystagmus. ENT: Nares patent, oropharynx clear without exudates. Moist mucous membranes. NECK: Normal range of motion, supple without lymphadenopathy LUNGS: Breath sounds clear to auscultation bilaterally and equal. No wheezes rales or rhonchi. HEART: Regular rate and rhythm without murmurs ABDOMEN: Soft, nontender, nondistended abdomen. No guarding, no rebound. No masses appreciated. Musculoskeletal: Normal range of motion, no pitting or edema. No cyanosis. NEUROLOGICAL: Cranial nerves grossly intact. Normal speech, normal gait. Normal sensory, motor exams PSYCH: Normal mood, normal affect. SKIN: Warm, Dry, normal turgor, no rashes or lesions noted. Course - Re-evaluation Re-evalutation: 01/20/18 21:09 Laboratory 01/20/18 01/20/18 01/20/18 17:28 17:28 19:30 WBC 10.5 RBC 4.63 Hgb 13.5 Hct 41.6 MCV 90 MCH 29.3 MCHC 32.6 RDW 15.2 H Plt Count 308 Seg Neutrophils % 67.9 Lymphocytes % 22.8 Monocytes % 6.2 Eosinophils % 2.5 Basophils % 0.6 Absolute Neutrophils 7.1 Absolute Lymphocytes 2.4 Absolute Monocytes 0.7 Absolute Eosinophils 0.3 Absolute Basophils 0.1 Sodium 146.1 H Potassium 4.0 Chloride 106 Carbon Dioxide 26 Anion Gap 14 BUN 23 H Creatinine 1.14 Est GFR ( Amer) > 60 Est GFR (Non-Af Amer) > 60 Glucose 138 H Calcium 10.1 Total Bilirubin 0.3 Direct Bilirubin 0.3 Neonat Total Bilirubin Not Reportable Neonat Direct Bilirubin Not Reportable Neonat Indirect Bili Not Reportable AST 27 ALT 45 Alkaline Phosphatase 81 Total Protein 7.8 Albumin 4.5 Urine Color STRAW Urine Appearance CLEAR Urine pH 7.0 Ur Specific [place] 1.008 Urine Protein 100 H Urine Glucose (UA) NEGATIVE Urine Ketones NEGATIVE Urine Blood MODERATE H Urine Nitrite NEGATIVE Urine Bilirubin NEGATIVE Urine Urobilinogen NEGATIVE Ur Leukocyte Esterase NEGATIVE Urine WBC (Auto) 0 Urine RBC (Auto) 20 U Hyaline Cast (Auto) 1 Urine Mucus (Auto) RARE Urine Ascorbic Acid NEGATIVE Neck CTA 01/20/18 00:00 IMPRESSION: NORMAL CTA OF THE EXTRA-CRANIAL CAROTID AND VERTEBRAL ARTERIES. Head CTA 01/20/18 17:43 IMPRESSION: NO CTA EVIDENCE OF STENOSIS OR ANEURYSM OF THE [place]. 67-year-old male with hypertension, type 2 diabetes, COPD, asthma presents via EMS with complaint of dizziness, nausea and vomiting. Patient's is at the bedside and provides the majority of the history because the patient is hard of hearing. She states that patient has had intermittent episodes of dizziness over the last 3 days. She states that he says that he feels like the room is spinning. Patient does state that it is worse when he turns to his left side or sits up. Today the dizziness worsened and the patient had a large episode of emesis which was nonbloody. Vital signs stable upon arrival. Patient does not appear toxic or dehydrated. He does appear to be uncomfortable. Patient with horizontal nystagmus. Normal neurologic exam. She received IV fluids, meclizine, Valium. CTA of the head and neck were obtained and within normal limits. CBC shows no leukocytosis or anemia. CMP shows mild elevation of glucose. Urinalysis does show hematuria which the patient reports is chronic. Patient reevaluated and reports resolution of his dizziness. He is ambulating without difficulty. He is tolerating fluids. Patient provided the opportunity to ask questions, and express concerns. Discharge instructions discussed. Patient is agreeable with discharge home. Return indications explained and discussed with the patient who displays understanding. Patient encouraged to return to the emergency department immediately with any concerns. 01/20/18 23:34 01/20/18 23:34 - Vital Signs Vital signs: Temp Pulse Resp BP Pulse Ox 17 124/91 H 93 01/20/18 21:31 01/20/18 21:32 01/20/18 21:32 - Laboratory Result Diagrams: 01/20/18 17:28 01/20/18 17:28 Laboratory results interpreted by me: 01/20/18 01/20/18 01/20/18 17:28 17:28 19:30 RDW 15.2 H Sodium 146.1 H BUN 23 H Glucose 138 H Urine Protein 100 H Urine Blood MODERATE H - Diagnostic Test Radiology reviewed: Image reviewed, Reports reviewed - EKG Interpretation by Tx EKG shows normal: Sinus rhythm Rate: Normal Discharge - Discharge Clinical Impression: Vertigo, Elevated blood pressure reading Nausea & vomiting Qualifiers: Vomiting type: unspecified Vomiting Intractability: non-intractable Qualified Code(s): R11.2 - Nausea with vomiting, unspecified Hematuria Qualifiers: Hematuria type: unspecified type Qualified Code(s): R31.9 - Hematuria, unspecified Condition: Good Disposition: HOME, SELF-CARE Instructions: Hematuria ([facility]), Nausea or Vomiting, Nonspecific ([facility]), Vertigo ( [facility]) Prescriptions: Diazepam [Valium 5 mg Tablet] 5 mg PO Q12H PRN #5 tablet PRN Reason: Dizziness Meclizine HCl 25 mg PO Q6H PRN #14 tab.chew PRN Reason: Dizziness Ondansetron [Zofran Odt 4 mg Tablet] 1 - 2 tab PO Q4H PRN #15 tab.rapdis PRN Reason: For Nausea/Vomiting Forms: Elevated Blood Pressure Referrals: Cirilo CAICEDO MD [ACTIVE STAFF] - Follow up in 3-5 days
[2018-01-20 18:01] LABS: ABSOLUTE BASOPHILS # (AUTO) 0.1 10^3/uL (0.0-0.2); ABSOLUTE EOSINOPHILS # (AUTO) 0.3 10^3/uL (0.0-0.6); ABSOLUTE LYMPHOCYTES (AUTO) 2.4 10^3/uL (0.5-4.7); ABSOLUTE MONOCYTES (AUTO) 0.7 10^3/uL (0.1-1.4); ABSOLUTE NEUT (AUTO) 7.1 10^3/uL (1.7-8.2); BASOPHILS % (AUTO) 0.6 % (0-2); EOSINOPHILS % (AUTO) 2.5 % (0-6); HEMATOCRIT 41.6 % (37.9-51.0); HEMOGLOBIN 13.5 g/dL (13.5-17.0); LYMPHOCYTES % (AUTO) 22.8 % (13-45); MEAN CORPUSCULAR HEMOGLOBIN 29.3 pg (27.0-33.4); MEAN CORPUSCULAR HGB CONC 32.6 g/dL (32.0-36.0); MEAN CORPUSCULAR VOLUME 90 fl (80-97); MONOCYTES % (AUTO) 6.2 % (3-13); PLATELET COUNT 308 10^3/uL (150-450); RED BLOOD COUNT 4.63 10^6/uL (4.35-5.55); RED CELL DISTRIBUTION WIDTH 15.2 % (11.5-14.0); SEGMENTED NEUTROPHILS % (AUTO) 67.9 % (42-78); TOTAL CELLS COUNTED % (AUTO) 100 %; WHITE BLOOD COUNT 10.5 10^3/uL (4.0-10.5)
[2018-01-20 18:10] LABS: ALANINE AMINOTRANSFERASE 45 U/L (21-72); ALBUMIN 4.5 g/dL (3.5-5.0); ALKALINE PHOSPHATASE 81 U/L (38-126); ANION GAP 14 (5-19); ASPARTATE AMINO TRANSFERASE 27 U/L (17-59); BILIRUBIN,DIRECT 0.3 mg/dL (0.0-0.4); BILIRUBIN,TOTAL 0.3 mg/dL (0.2-1.3); BLOOD UREA NITROGEN 23 mg/dL (7-20); CALCIUM 10.1 mg/dL (8.4-10.2); CARBON DIOXIDE 26 mmol/L (22-30); CHLORIDE 106 mmol/L (98-107); GLUCOSE 138 mg/dL (75-110); SODIUM 146.1 mmol/L (137-145); TOTAL PROTEIN 7.8 g/dL (6.3-8.2)
[2018-01-20] MEDS ORDERED: ONDANSETRON 4 MG TAB.RAPDIS PO ONE (19:44)
[2018-01-20 19:57] LABS: APPEARANCE,URINE CLEAR; BILIRUBIN,URINE NEGATIVE (NEGATIVE); COLOR,URINE STRAW; GLUCOSE, URINE NEGATIVE (NEGATIVE); KETONES,URINE NEGATIVE (NEGATIVE); LEUKOCYTE ESTERASE,URINE NEGATIVE (NEGATIVE); NITRITE,URINE NEGATIVE (NEGATIVE); PROTEIN,URINE 100 mg/dL (NEGATIVE); URINE SPECIFIC GRAVITY 1.008; UROBILINOGEN,URINE NEGATIVE mg/dL (<2.0)
--- NOTE | 2018-01-20 20:30 | RADIOLOGY REPORT (SQ) ---
EXAM DESCRIPTION: CTA HEAD COMPLETED DATE/TIME: 01/20/2018 8:17 pm REASON FOR STUDY: Persistent dizziness COMPARISON: None. TECHNIQUE: Post IV contrast scanning, thin section axial imaging through the brain to evaluate the a rterial structures. Source and MIP images are saved and reviewed on PACS. Advanced 3D imaging as volume-rendering, MIPs, SSD performed? yes All CT scanners at this facility use dose modulation, iterative reconstruction, and/or weight based d osing when appropriate to reduce radiation dose to as low as reasonably achievable (ALARA). [facility]: Dose Right [facility]: CareDose [facility]: Dose Right [facility]: Teradose 4D [facility]: [employer] CONTRAST TYPE AND DOSE: 70 mL Omnipaque 350- low osmolar. RENAL FUNCTION: BUN 23 creatinine 1.14 LIMITATIONS: None. FINDINGS: [place]: The anterior, middle, posterior cerebral arteries are all patent. No ev idence of aneurysm or focal stenosis. POSTERIOR CIRCULATION: The distal vertebral arteries are patent as is the basilar artery. No aneurysm . BRAIN: No gross enhancing lesions as visualized. The superior cerebral hemispheres are not included in the field of view. BONES: Intact as visualized. SINUSES: No fluid or mucosal thickening. OTHER: No other significant finding. IMPRESSION: NO CTA EVIDENCE OF STENOSIS OR ANEURYSM OF THE [place]. TECHNICAL DOCUMENTATION: JOB ID: [id number] Quality ID # [id number]: Final reports with documentation of one or more dose reduction techniques (e.g., Au tomated exposure control, adjustment of the mA and/or kV according to patient size, use of iterative reconstruction technique) 2010 [employer]- All Rights Reserved Reading location - IP/workstation name: [email or web address]
--- NOTE | 2018-01-20 20:34 | RADIOLOGY REPORT (SQ) ---
EXAM DESCRIPTION: CTA NECK COMPLETED DATE/TIME: 01/20/2018 8:17 pm REASON FOR STUDY: PERSISTENT DIZZINESS COMPARISON: None. TECHNIQUE: Axial dynamic scanning technique with dynamic contrast enhancement through the extra-craniologist nial carotid and vertebral arteries. Multiplanar reconstruction. 3-D MIPS and Volume-rendered imag es acquired at the workstation and saved to PACS. Images are reviewed in soft tissue, bone, lung w indows. All CT scanners at this facility use dose modulation, iterative reconstruction, and/or weight based d osing when appropriate to reduce radiation dose to as low as reasonably achievable (ALARA). [facility]: Dose Right [facility]: CareDose [facility]: Dose Right [facility]: Teradose 4D [facility]: [employer] CONTRAST TYPE AND DOSE: contrast/concentration: Isovue 350.00 mg/ml; Total Contrast Delivered: 70.0 ml; Total Saline Delivered: 75.0 ml RENAL FUNCTION: BUN 23 creatinine 1.14 LIMITATIONS: None. FINDINGS: AORTIC ARCH: Normal three-vessel origin. Bilateral subclavian arteries are patent. No d issection. RIGHT CAROTIDS: Patent common, internal and external carotid arteries without suggestion of significa nt stenosis or irregular plaque. No dissection. RIGHT VERTEBRAL: Patent. No dissection. LEFT CAROTIDS: Patent common, internal and external carotid arteries without suggestion of significan t stenosis or irregular plaque. No dissection. LEFT VERTEBRAL: Patent. No dissection. OTHER: No other significant finding. OTHER: 3-D reconstructions confirm findings. IMPRESSION: NORMAL CTA OF THE EXTRA-CRANIAL CAROTID AND VERTEBRAL ARTERIES. COMMENT: Quality ID #[id number]: Measurements of distal internal carotid diameter were used as the denomina tor for stenosis measurement. TECHNICAL DOCUMENTATION: JOB ID: [id number] Quality ID # [id number]: Final reports with documentation of one or more dose reduction techniques (e.g., Au tomated exposure control, adjustment of the mA and/or kV according to patient size, use of iterative reconstruction technique) 2010 [employer]- All Rights Reserved Reading location - IP/workstation name: [email or web address]
[2018-01-20 21:34] VITALS: BP 124/91
--- NOTE | 2018-01-21 07:36 | EKG REPORT ---
SEVERITY:- ABNORMAL ECG - SINUS RHYTHM NONSPECIFIC ST-T CHANGES- INFERIOR LEADS : Confirmed by: Steven Addison MD 21-Jan-2018 07:36:12
== END 2018-01-20 21:34 | disposition home or self-care (01) ==
LOC: ER 17:21
DX: R42 Dizziness and giddiness (principal); R31.9 Hematuria, unspecified; R11.2 Nausea with vomiting, unspecified; H55.00 Unspecified nystagmus; I10 Essential (primary) hypertension; E11.9 Type 2 diabetes mellitus without complications; J44.9 Chronic obstructive pulmonary disease, unspecified; Z87.891 Personal history of nicotine dependence
CPT/HCPCS: 93005; 99285; 96360; 36415; 85025; 80053; 81001; 70496; 70498; 93010; A9270 ×3; J7040; S0119

== ENCOUNTER 2019-05-26 09:51 | Emergency (ER) | payer MEDICARE, OTHER ==
[2019-05-26] MEDS ORDERED: MAGNESIUM SULFATE/D5W 1 GM/100 ML RTUPB IV ONE ×2 (10:23→10:25)
[2019-05-26] MEDS ORDERED: IPRATROPIUM/ALBUTEROL 0.5-2.5 MG/3 ML AMPUL NEB ONE ×2 (10:23→15:02)
[2019-05-26] MEDS ORDERED: METHYLPREDNISOLONE INJ 125 MG/2 ML SDV IV ONE (10:24)
--- NOTE | 2019-05-26 10:27 | ER Document Report ---
ED Medical Screen (RME) - General Chief Complaint: Breathing Difficulty Stated Complaint: DIFFICULTY BREATHING Time Seen by Provider: 05/26/19 10:17 Notes: 69-year-old male with COPD, hypertension, diabetes presents to the emergency department with shortness of breath progressively worse over the past 2 weeks. Patient states that he has had a cough and congestion and is now having difficulty breathing. Patient is on oxygen 2 L while at home at night and when he is out in town. O2 sats 89 to 90% on 2 L here in triage. Denies fevers or chills, denies chest pain, states that he has chest tightness and cannot catch his breath Exam: Nontoxic-appearing in mild distress, increased work of breathing, decreased air movement with expiratory wheezing on auscultation I have greeted and performed a rapid initial assessment of this patient. A comprehensive ED assessment and evaluation of the patient, analysis of test results and completion of medical decision making process will be conducted by an additional ED providers. TRAVEL OUTSIDE OF THE [place] IN LAST 30 DAYS: No - Related Data Allergies/Adverse Reactions: diphenhydramine [From Benadryl] Adverse Reaction (Intermediate, Verified 05/26/19 10:17) ibuprofen [From Motrin] Adverse Reaction (Intermediate, Verified 05/26/19 10:17) Bleeding Home Medications: loratadine. norvasc. atorvastatin. tylenol. flomax. janumet. spiriva. mucinex. vitamin d3. finastride. lisinopril. symbicort Past Medical History - Past Medical History Cardiac Medical History: Reports: Hx Hypertension Pulmonary Medical History: Reports: Hx Asthma Endocrine Medical History: Reports: Hx Diabetes Mellitus Type 2 Renal/ Medical History: Denies: Hx Peritoneal Dialysis Past Surgical History: Reports: Other - Segmental colectomy in the for colon cancer. - Immunizations Hx Diphtheria, Pertussis, Tetanus Vaccination: Yes
[2019-05-26 10:56] LABS: ABSOLUTE BASOPHILS # (AUTO) 0.1 10^3/uL (0.0-0.2); ABSOLUTE EOSINOPHILS # (AUTO) 0.3 10^3/uL (0.0-0.6); ABSOLUTE LYMPHOCYTES (AUTO) 0.7 10^3/uL (0.5-4.7); ABSOLUTE MONOCYTES (AUTO) 0.7 10^3/uL (0.1-1.4); ABSOLUTE NEUT (AUTO) 6.1 10^3/uL (1.7-8.2); BASOPHILS % (AUTO) 0.7 % (0-2); EOSINOPHILS % (AUTO) 3.4 % (0-6); HEMATOCRIT 38.1 % (37.9-51.0); HEMOGLOBIN 12.8 g/dL (13.5-17.0); LYMPHOCYTES % (AUTO) 9.3 % (13-45); MEAN CORPUSCULAR HEMOGLOBIN 30.5 pg (27.0-33.4); MEAN CORPUSCULAR HGB CONC 33.6 g/dL (32.0-36.0); MEAN CORPUSCULAR VOLUME 91 fl (80-97); MONOCYTES % (AUTO) 9.1 % (3-13); PLATELET COUNT 252 10^3/uL (150-450); RED CELL DISTRIBUTION WIDTH 14.7 % (11.5-14.0); SEGMENTED NEUTROPHILS % (AUTO) 77.5 % (42-78); TOTAL CELLS COUNTED % (AUTO) 100 %; WHITE BLOOD COUNT 7.8 10^3/uL (4.0-10.5)
[2019-05-26 11:17] LABS: ALBUMIN 4.3 g/dL (3.5-5.0); ALKALINE PHOSPHATASE 69 U/L (38-126); ANION GAP 8 (5-19); ASPARTATE AMINO TRANSFERASE 22 U/L (17-59); BILIRUBIN,DIRECT 0.1 mg/dL (0.0-0.4); BILIRUBIN,TOTAL 0.4 mg/dL (0.2-1.3); BLOOD UREA NITROGEN 17 mg/dL (7-20); CALCIUM 10.4 mg/dL (8.4-10.2); CARBON DIOXIDE 32 mmol/L (22-30); CHLORIDE 104 mmol/L (98-107); GLUCOSE 97 mg/dL (75-110); POTASSIUM 4.9 mmol/L (3.6-5.0); TOTAL PROTEIN 7.4 g/dL (6.3-8.2)
--- NOTE | 2019-05-26 11:54 | RADIOLOGY REPORT (SQ) ---
EXAM DESCRIPTION: CHEST 2 VIEWS COMPLETED DATE/TIME: 05/26/2019 11:29 am REASON FOR STUDY: COPD exacerbation COMPARISON: None. EXAM PARAMETERS: NUMBER OF VIEWS: two views TECHNIQUE: Digital Frontal and Lateral radiographic views of the chest acquired. RADIATION DOSE: NA LIMITATIONS: none FINDINGS: LUNGS AND PLEURA: Bilateral interstitial prominence. No focal consolidation. No large ef fusion. No pneumothorax. MEDIASTINUM AND HILAR STRUCTURES: No discrete masses P HEART AND VASCULAR STRUCTURES: Central vascular congestion. Normal heart size. Ectatic thoracic aor ta. BONES: No acute findings. HARDWARE: None in the chest. OTHER: No other significant finding. IMPRESSION: Bilateral interstitial prominence possibly secondary to edema versus fibrotic change. No focal consolidation. No significant effusion. TECHNICAL DOCUMENTATION: JOB ID: [id number] [employer]- All Rights Reserved Reading location - IP/workstation name: [email or web address]
[2019-05-26 12:46] LABS: APPEARANCE,URINE CLEAR; BILIRUBIN,URINE NEGATIVE (NEGATIVE); COLOR,URINE STRAW; GLUCOSE, URINE NEGATIVE (NEGATIVE); KETONES,URINE NEGATIVE (NEGATIVE); LEUKOCYTE ESTERASE,URINE MODERATE (NEGATIVE); NITRITE,URINE NEGATIVE (NEGATIVE); PROTEIN,URINE 100 mg/dL (NEGATIVE); URINE SPECIFIC GRAVITY 1.005; UROBILINOGEN,URINE NEGATIVE mg/dL (<2.0)
--- NOTE | 2019-05-26 15:08 | ER Document Report ---
Entered by CAROLE HUNT SCRIBE 05/26/19 1446 Acting as scribe for:JEREMÍAS WALTON IV, MD ED General - General Chief Complaint: Breathing Difficulty Stated Complaint: DIFFICULTY BREATHING Time Seen by Provider: 05/26/19 10:17 Mode of Arrival: Ambulatory Information source: Patient Notes: This 69 year old male patient with a history of COPD presents to the ED today with complaints of shortness of breath for the past x2 weeks. Patient reports cough, congestion, dyspnea, and chest tightness, but denies fever or chills. Patient states that his symptoms have progressively worsened since onset. Patient notes that he is on 2L of O2 at home at night. TRAVEL OUTSIDE OF THE [place] IN LAST 30 DAYS: No - Related Data Allergies/Adverse Reactions: diphenhydramine [From Benadryl] Adverse Reaction (Intermediate, Verified 05/26/19 10:17) ibuprofen [From Motrin] Adverse Reaction (Intermediate, Verified 05/26/19 10:17) Bleeding Home Medications: loratadine. norvasc. atorvastatin. tylenol. flomax. janumet. spiriva. mucinex. vitamin d3. finastride. lisinopril. symbicort Past Medical History - General Information source: Patient, [facility] Records - Social History Smoking Status: Former Smoker Cigarette use (# per day): No Chew tobacco use (# tins/day): No Smoking Education Provided: No Family History: Reviewed & Not Pertinent Patient has suicidal ideation: No Patient has homicidal ideation: No - Past Medical History Cardiac Medical History: Reports: Hx Hypertension Pulmonary Medical History: Reports: Hx Asthma Endocrine Medical History: Reports: Hx Diabetes Mellitus Type 2 Past Surgical History: Reports: Other - Segmental colectomy in the for colon cancer. - Immunizations Hx Diphtheria, Pertussis, Tetanus Vaccination: Yes Review of Systems - Review of Systems Constitutional: See HPI. denies: Chills, Fever EENT: No symptoms reported Cardiovascular: See HPI, Dyspnea, Other - Chest tightness Respiratory: See HPI, Cough, Short of breath, Other - Congestion Gastrointestinal: No symptoms reported Genitourinary: No symptoms reported Male Genitourinary: No symptoms reported Musculoskeletal: No symptoms reported Skin: No symptoms reported Hematologic/Lymphatic: No symptoms reported Neurological/Psychological: No symptoms reported -: Yes All other systems reviewed and negative Physical Exam - Vital signs Vitals: Resp Pulse Ox 20 93 05/26/19 11:24 05/26/19 11:24 Interpretation: Normal - General General appearance: Appears well, Alert - HEENT Head: Normocephalic, Atraumatic Eyes: Normal Pupils: PERRL - Respiratory Respiratory status: No respiratory distress Chest status: Nontender Breath sounds: Wheezing - In bilateral lung bases, Other - Upper lung hunter are clear bilaterally Chest palpation: Normal - Cardiovascular Rhythm: Regular Heart sounds: Normal auscultation Murmur: No - Abdominal Inspection: Normal Distension: No distension Bowel sounds: Normal Tenderness: Nontender - Abdomen soft Organomegaly: No organomegaly - Back Back: Normal, Nontender - Extremities General upper extremity: Normal inspection General lower extremity: Normal inspection - Neurological Neuro grossly intact: Yes - Psychological Associated symptoms: Normal affect, Normal mood - Skin Skin Temperature: Warm Skin Moisture: Dry Skin Color: Normal Course - Re-evaluation Re-evalutation: 05/26/19 15:08 Patient states he feels better compared to presentation. Patient states he feels like his breathing is improved. 05/26/19 15:11 Patient is requesting a prescription for Nexium for his reflux - Vital Signs Vital signs: Temp Pulse Resp BP Pulse Ox 27 H 144/80 H 92 05/26/19 13:01 05/26/19 13:00 05/26/19 13:01 - Laboratory Result Diagrams: 05/26/19 10:34 05/26/19 10:34 Laboratory results interpreted by me: 05/26/19 05/26/19 05/26/19 10:34 10:34 12:15 RBC 4.20 L Hgb 12.8 L RDW 14.7 H Lymph % (Auto) 9.3 L Carbon Dioxide 32 H Creatinine 1.26 H Est GFR (MDRD) Non-Af 57 L Calcium 10.4 H Urine Protein 100 H Urine Blood MODERATE H Ur Leukocyte Esterase MODERATE H - Diagnostic Test Radiology reviewed: Reports reviewed - EKG Interpretation by Me Additional EKG results interpreted by me: 05/26/19 15:09 EKG obtained on 05/26/2019 at 1124 hrs. was interpreted by this MD. Findings: Sinus tachycardia, rate 103, P waves proceed QRS complexes QRS complexes appear narrow, there are no obvious ST segment elevations or depressions to suggest myocardial ischemia or injury. Impression sinus tachycardia with nonspecific ST segments. Discharge - Discharge Clinical Impression: COPD exacerbation Condition: Good Disposition: HOME, SELF-CARE Additional Instructions: Return to the Emergency Department without delay if any worse. HOME CARE INSTRUCTIONS & INFORMATION: Thank you for choosing us for your medical needs. We hope you're satisfied with the care you received. After you leave, you must properly care for your problem and, at the same time, observe its progress. Any condition can change. Some illnesses can change rapidly over hours or days. If your condition worsens, return to the Emergency Department or see your physician promptly. ABOUT YOUR X-RAYS AND EKG'S: If you had an EKG or X-rays taken, they have been read by the Emergency Physician. The X-rays and EKG's will also be read by a Radiologist or Pan Puller within 24 hours. If discrepancies are noted, you will be notified by telephone. Please be certain the ED has a correct telephone number & address where you can be reached. Also, realize that some fractures or abnormalities do not show up on initial X-rays. If your symptoms continue, see your physician. ABOUT YOUR LABORATORY TEST: If you had laboratory tests, the results have been reviewed by the Emergency Physician. Some test results (for example cultures) may not be available for several days. You will be contacted if any test result shows you need additional treatment. Please be certain the ED has a correct telephone number and address where you can be reached. ABOUT YOUR MEDICATIONS: You will receive instructions on how to take your medicine on the prescription label you receive. Additional information may be provided by the Pharmacy. If you have questions afterwards, call the ED for clarification or further instructions. Some prescribed medications may cause drowsiness. Do not perform tasks such as driving a car or operating machinery without consulting your Pharmacist. If you feel you need a refill of pain medication, your condition will need re-evaluation. Please do not call for a r efill of any medication. ABOUT YOUR SIGNATURE: Signature of this document acknowledges to followin. Understanding that you received emergency treatment and that you may be released before al medical problems are known or treated. Please be certain the ED has a correct phone number & address where you can be reached. 2. Acknowledgement that you will arrange for follow-up care as recommended. 3. Authorization for the Emergency Physician to provide information to your follow-up Physician in order to maximize your care. AT ANY TIME, IF YOUR SYMPTOMS CHANGE SIGNIFICANTLY OR WORSEN OR YOU DEVELOP NEW SYMPTOMS, RETURN TO THE EMERGENCY DEPARTMENT IMMEDIATELY FOR RE-EVALUATION. OUR GOAL IS TO PROVIDE EXCELLENT MEDICAL CARE! WE HOPE THAT WE HAVE MET YOUR EXPECTATIONS DURING YOUR EMERGENCY DEPARTMENT VISIT AND THAT YOU FEEL YOU HAVE RECEIVED EXCELLENT CARE! Chronic Obstructive Lung Disease You have chronic obstructive lung disease (COPD). The symptoms come from emphysema (damage to small airways, with trapping of air in large sacks in the lung) and chronic bronchitis (repeated infection and damage to larger airways). The cause is almost always cigarette smoking, although dust exposure, asthma, and infections contribute. You should avoid fumes, dust, and smoke (especially tobacco smoke). Your condition will flare from time to time. There is no cure, but the symptoms can be treated. Bronchodilators (asthma medicine) are often helpful. Antibiotics help when infection is present. When shortness of breath is severe, we may prescribe cortisone medication. If medicine doesn't help enough, we can arrange for you to have an oxygen tank at home. Notify your doctor at once if sputum becomes thick, foul, or bloody, if you develop a fever or chest pain, or if your shortness of breath worsens. Prescriptions: Prednisone [Deltasone 20 mg Tablet] 3 tab PO DAILY 4 Days #12 tablet Esomeprazole Magnesium [Nexium 24Hr] 20 mg PO DAILY #30 capsule.dr Stewart personally performed the services described in the documentation, reviewed and edited the documentation which was dictated to the scribe in my presence, and it accurately records my words and actions.
[2019-05-26 15:29] VITALS: BP 124/89
--- NOTE | 2019-05-26 19:23 | EKG REPORT ---
SEVERITY:- ABNORMAL ECG - SINUS TACHYCARDIA POOR R WAVE PROGRESSION , CONSIDER LEAD PLACEMENT ERROR NONSPECIFIC INFERIOR ST-T CHANGES : Confirmed by: Steven Addison MD 26-May-2019 19:23:38
== END 2019-05-26 15:36 | disposition home or self-care (01) ==
LOC: ER 09:51
DX: J44.1 Chronic obstructive pulmonary disease with (acute) exacerbation (principal); R06.02 Shortness of breath; R05 Cough; R09.81 Nasal congestion; R06.00 Dyspnea, unspecified; R07.9 Chest pain, unspecified; Z99.81 Dependence on supplemental oxygen; Z87.891 Personal history of nicotine dependence; I10 Essential (primary) hypertension; E11.9 Type 2 diabetes mellitus without complications
CPT/HCPCS: 93005; 96376; 94640 ×2; 99285; 96374; 96375; 36415; 85025; 80053; 81001; 84484; 71046; 93010; J2930; J3475; A9270; J7620

== ENCOUNTER 2019-09-27 12:18 | Inpatient (IN) | payer MEDICARE, OTHER ==
[2019-09-27 13:11] LABS: VENOUS BLOOD BASE EXCESS -2.8 mmol/L; VENOUS BLOOD HCO3 24.7 mmol/L (20-32); VENOUS BLOOD PCO2 54.5 mmHg (35-63); VENOUS BLOOD PH 7.27 (7.30-7.42)
[2019-09-27 13:13] LABS: HEMATOCRIT 38.5 % (37.9-51.0); HEMOGLOBIN 12.9 g/dL (13.5-17.0); MEAN CORPUSCULAR HEMOGLOBIN 30.8 pg (27.0-33.4); MEAN CORPUSCULAR HGB CONC 33.4 g/dL (32.0-36.0); MEAN CORPUSCULAR VOLUME 92 fl (80-97); RED BLOOD COUNT 4.18 10^6/uL (4.35-5.55); WHITE BLOOD COUNT 9.8 10^3/uL (4.0-10.5)
[2019-09-27 13:21] LABS: INTERNATIONAL RATION (INR) 1.01; PROTHROMBIN TIME 13.3 SEC (11.4-15.4)
[2019-09-27 13:31] LABS: ALBUMIN 4.4 g/dL (3.5-5.0); ALKALINE PHOSPHATASE 77 U/L (38-126); ANION GAP 12 (5-19); ASPARTATE AMINO TRANSFERASE 47 U/L (17-59); BILIRUBIN,TOTAL 0.5 mg/dL (0.2-1.3); BLOOD UREA NITROGEN 22 mg/dL (7-20); CALCIUM 9.9 mg/dL (8.4-10.2); CARBON DIOXIDE 24 mmol/L (22-30); CHLORIDE 104 mmol/L (98-107); CREATINE KINASE 255 U/L (55-170); GLUCOSE 171 mg/dL (75-110); POTASSIUM 4.5 mmol/L (3.6-5.0); TOTAL PROTEIN 7.5 g/dL (6.3-8.2)
[2019-09-27] MEDS: MAGNESIUM SULFATE/D5W 1 GM/100 ML RTUPB IV SCH ×2 (13:35→16:18)
--- NOTE | 2019-09-27 13:36 | RADIOLOGY REPORT (SQ) ---
EXAM DESCRIPTION: CHEST SINGLE VIEW IMAGES COMPLETED DATE/TIME: 09/27/2019 1:12 pm REASON FOR STUDY: bed 6 difficulty breathing COMPARISON: 05/26/2019, CT 06/06/2019 EXAM PARAMETERS: NUMBER OF VIEWS: One view. TECHNIQUE: Single frontal radiographic view of the chest acquired. RADIATION DOSE: NA LIMITATIONS: None. FINDINGS: LUNGS AND PLEURA: Stable course bilateral reticulonodular interstitial opacities. No foca l consolidation. No pleural effusion or pneumothorax. MEDIASTINUM AND HILAR STRUCTURES: No masses. Contour normal. HEART AND VASCULAR STRUCTURES: Enlarged, stable. Ectatic thoracic aorta. BONES: No acute findings. HARDWARE: None in the chest. OTHER: No other significant finding. IMPRESSION: Stable coarse bilateral interstitial opacities, likely secondary to interstitial lung di sease. No definitive superimposed cardiopulmonary process. TECHNICAL DOCUMENTATION: JOB ID: [id number] 2010 [employer]- All Rights Reserved Reading location - IP/workstation name: [email or web address]
[2019-09-27 13:42] LABS: CREATINE KINASE MB 1.94 ng/mL (<4.55); TROPONIN I 0.027 ng/mL
[2019-09-27 13:45] LABS: ABSOLUTE LYMPHOCYTES# (MANUAL) 0.6 10^3/uL (0.5-4.7); ABSOLUTE MONOCYTES # (MANUAL) 0.2 10^3/uL (0.1-1.4); BASOPHILS % (MANUAL) 0 % (0-2); EOSINOPHILS % (MANUAL) 0 % (0-6); LYMPHOCYTES % (MANUAL) 6 % (13-45); MONOCYTES % (MANUAL) 2 % (3-13); SEGMENTED NEUTROPHILS % (MAN) 92 % (42-78); TOTAL CELLS COUNTED 100
[2019-09-27 13:47] LABS: RBC MORPHOLOGY COMMENT NORMO-CYTIC/CHROMIC
[2019-09-27 13:48] LABS: PLATELET CLUMPS PRESENT
[2019-09-27 13:50] LABS: PARTIAL THROMBOPLASTIN TIME 29.9 SEC (23.5-35.8); PLATELET COUNT 277 10^3/uL (150-450)
[2019-09-27 13:51] LABS: PLATELET COMMENT ADEQUATE
[2019-09-27 13:52] LABS: D-DIMER 0.82 ug/mL (0.00-0.50)
[2019-09-27 14:44] LABS: A TYPE INFLUENZA AG NEGATIVE (NEGATIVE); B INFLUENZA AG NEGATIVE (NEGATIVE)
[2019-09-27 14:50] LABS: APPEARANCE,URINE CLEAR; BILIRUBIN,URINE NEGATIVE (NEGATIVE); COLOR,URINE YELLOW; GLUCOSE, URINE 50 mg/dL (NEGATIVE); KETONES,URINE NEGATIVE (NEGATIVE); LEUKOCYTE ESTERASE,URINE NEGATIVE (NEGATIVE); NITRITE,URINE NEGATIVE (NEGATIVE); PROTEIN,URINE >=500 mg/dL (NEGATIVE); URINE SPECIFIC GRAVITY 1.009; UROBILINOGEN,URINE NEGATIVE mg/dL (<2.0)
[2019-09-27] MEDS ORDERED: IPRATROPIUM/ALBUTEROL 0.5-2.5 MG/3 ML AMPUL NEB ONE (16:35)
[2019-09-27] MEDS ORDERED: ACETAMINOPHEN 325 MG TABLET PO PRN (16:35)
[2019-09-27] MEDS ORDERED: ONDANSETRON HCL INJ/PF 4 MG/2 ML SDV IV PRN (16:35)
--- NOTE | 2019-09-27 16:37 | ER Document Report ---
Entered by MELCHOR KULKARNI SCRIBE 09/27/19 5980 Acting as scribe for:ARELIS RUTH MD ED Respiratory Problem - General Chief Complaint: Breathing Difficulty Stated Complaint: DIFFICULTY BREATHING Time Seen by Provider: 09/27/19 12:35 Information source: Patient Notes: This 69 year old male patient presents to the emergency department today with complaints of shortness of breath. Patient states his air conditioner stopped working x3 days ago and he has had shortness of breath since. Patient states he is on oxygen only during the night. Patient states he has a history of COPD and had more difficulty breathing this morning so he called EMS. Patient denies any fever, chills, or sore throat. TRAVEL OUTSIDE OF THE [place] IN LAST 30 DAYS: No - Related Data Allergies/Adverse Reactions: diphenhydramine [From Benadryl] Adverse Reaction (Intermediate, Verified 05/26/19 10:17) ibuprofen [From Motrin] Adverse Reaction (Intermediate, Verified 05/26/19 10:17) Bleeding Past Medical History - General Information source: Patient - Social History Smoking Status: Former Smoker Cigarette use (# per day): No Chew tobacco use (# tins/day): No Frequency of alcohol use: None Drug Abuse: None Family History: Reviewed & Not Pertinent Patient has homicidal ideation: No - Past Medical History Cardiac Medical History: Reports: Hx Hypertension Pulmonary Medical History: Reports: Hx Asthma, Hx COPD Endocrine Medical History: Reports: Hx Diabetes Mellitus Type 2 Past Surgical History: Reports: Hx Abdominal Surgery, Hx Bowel Surgery - colon surgery, Other - Segmental colectomy in the for colon cancer. - Immunizations Hx Diphtheria, Pertussis, Tetanus Vaccination: Yes Review of Systems - Review of Systems Constitutional: See HPI. denies: Chills, Fever EENT: See HPI. denies: Throat pain Cardiovascular: No symptoms reported Respiratory: See HPI, Short of breath Gastrointestinal: No symptoms reported Genitourinary: No symptoms reported Male Genitourinary: No symptoms reported Musculoskeletal: No symptoms reported Skin: No symptoms reported Hematologic/Lymphatic: No symptoms reported Neurological/Psychological: No symptoms reported -: Yes All other systems reviewed and negative Physical Exam - Vital signs Vitals: Resp Pulse Ox 28 H 94 09/27/19 12:31 09/27/19 12:31 - General General appearance: Appears well, Alert - HEENT Head: Normocephalic, Atraumatic Eyes: Normal Pupils: PERRL Nasal: Other - Nasal cannula in place by EMS. - Respiratory Chest status: Nontender Breath sounds: Other - Diminished breath sounds.. No: Wheezing Chest palpation: Normal - Cardiovascular Rhythm: Tachycardia Heart sounds: Normal auscultation, S1 appreciated, S2 appreciated Murmur: No - Abdominal Inspection: Obese Distension: No distension Bowel sounds: Normal Tenderness: Nontender - Extremities General upper extremity: Normal inspection. No: Edema General lower extremity: Normal inspection. No: Edema - Neurological Neuro grossly intact: Yes Cognition: Normal Orientation: AAOx4 - Psychological Associated symptoms: Normal affect, Normal mood - Skin Skin Temperature: Warm Skin Moisture: Dry Skin Color: Normal Course - Re-evaluation Re-evalutation: 09/27/19 16:32 Patient is resting comfortable now on BiPAP to maintain his saturation above 90%. - Vital Signs Vital signs: Temp Pulse Resp BP Pulse Ox 98.3 F 123 H 28 H 152/84 H 97 09/27/19 12:40 09/27/19 13:08 09/27/19 16:01 09/27/19 16:00 09/27/19 16:01 09/27/19 16:33 Vital signs shows sinus tachycardia increased respiratory rate of 28 blood pressure systolic hypertension. Pulse ox is registering 97%. This is on BiPAP. - Laboratory Result Diagrams: 09/27/19 12:55 09/27/19 12:55 Laboratory results interpreted by me: 09/27/19 09/27/19 09/27/19 12:55 12:55 12:55 RBC 4.18 L Hgb 12.9 L RDW 15.0 H Seg Neuts % (Manual) 92 H Lymphocytes % (Manual) 6 L Monocytes % (Manual) 2 L Abs Neuts (Manual) 9.0 H D-Dimer VBG pH BUN 22 H Est GFR (MDRD) Non-Af 59 L Glucose 171 H Lactic Acid ALT 71 H Creatine Kinase 255 H NT-Pro-B Natriuret Pep 286 H Urine Protein Urine Glucose (UA) Urine Blood 09/27/19 09/27/19 09/27/19 12:55 12:55 12:55 RBC Hgb RDW Seg Neuts % (Manual) Lymphocytes % (Manual) Monocytes % (Manual) Abs Neuts (Manual) D-Dimer 0.82 H VBG pH 7.27 L BUN Est GFR (MDRD) Non-Af Glucose Lactic Acid 4.0 H ALT Creatine Kinase NT-Pro-B Natriuret Pep Urine Protein Urine Glucose (UA) Urine Blood 09/27/19 14:11 RBC Hgb RDW Seg Neuts % (Manual) Lymphocytes % (Manual) Monocytes % (Manual) Abs Neuts (Manual) D-Dimer VBG pH BUN Est GFR (MDRD) Non-Af Glucose Lactic Acid ALT Creatine Kinase NT-Pro-B Natriuret Pep Urine Protein >=500 H Urine Glucose (UA) 50 H Urine Blood MODERATE H Laboratories show blood sugar elevation in the patient who is a diabetic who received IV Solu-Medrol in route today. - Diagnostic Test Radiology reviewed: Image reviewed, Reports reviewed Radiology results interpreted by me: 09/27/19 16:35 Chest x-ray shows cardiomegaly and diffuse interstitial lung markings as read by radiologist as chronic interstitial lung disease with no new changes - EKG Interpretation by Me Additional EKG results interpreted by me: 09/27/19 16:36 Twelve-lead EKG shows sinus tachycardia at [address]-T wave changes. Discharge - Discharge Clinical Impression: Interstitial lung disease, Diabetes mellitus type 2 in obese, COPD with acute exacerbation, Hypoxemia Condition: Fair Disposition: ADMITTED INPATIENT Admitting Provider: Candie (Hospitalist) Unit Admitted: I[facility]U I personally performed the services described in the documentation, reviewed and edited the documentation which was dictated to the scribe in my presence, and it accurately records my words and actions.
[2019-09-27] MEDS ORDERED: NICOTINE 21 MG/24 HR PATCH.TD24 TD ONE (16:39)
[2019-09-27] MEDS ORDERED: IPRATROPIUM/ALBUTEROL 0.5-2.5 MG/3 ML AMPUL NEB PRN (16:40)
[2019-09-27] MEDS ORDERED: BUDESONIDE NEB 0.25 MG/2 ML AMPUL NEB PRN (16:41)
[2019-09-27] MEDS ORDERED: DEXTROSE 50%-WATER 25 GM/50 ML DISP.SYRIN IV PRN ×2 (16:44)
[2019-09-27] MEDS ORDERED: DEXTROSE 40% GEL 15 GM TUBE PO PRN ×2 (16:44)
[2019-09-27] MEDS ORDERED: GLUCAGON,HUMAN RECOMB 1 MG INJ IM PRN (16:44)
[2019-09-27] MEDS ORDERED: TAMSULOSIN HCL 0.4 MG CAP.SR.24H PO ONE (16:48)
--- NOTE | 2019-09-27 17:13 | PDOC H&P ---
History of Present Illness Admission Date/PCP: 09/27/2019 Patient complains of: Came to the emergency room with complaints of increasing shortness of breath History of Present Illness: MARTÍN SILVA is a 69 year old male with history of COPD on 2 L of oxygen, type 2 diabetes mellitus, morbid obesity, history of colon cancer status post colon resection in 1994, ex-smoker stopped smoking 4 years ago came to the emergency room with complaining of increasing shortness of breath. Shortness of breath associated with occasional cough and continuous wheezing. Denies any fevers denies any nausea vomiting diarrhea or abdominal pain. Denies any headaches dizzy spells. Denies any chest pains. Patient required BiPAP in the emergency room because for tachypnea and pulse ox is around 90% without BiPAP. L consult was called for admission for COPD exacerbation and a COVID test is negative. pt agreed to be in the hospital for further management. Past Medical History Cardiac Medical History: Reports: Hypertension Pulmonary Medical History: Reports: Asthma, Chronic Obstructive Pulmonary Disease (COPD) Endocrine Medical History: Reports: Diabetes Mellitus Type 2 Past Surgical History Past Surgical History: Reports: Other - Segmental colectomy in the for colon cancer. Social History Smoking Status: Former Smoker Electronic Cigarette use?: No Frequency of Alcohol Use: None Hx Recreational Drug Use: No Drugs: None Hx Prescription Drug Abuse: No - Advance Directive Resuscitation Status: Full Code Family History Family History: Reviewed & Not Pertinent Parental Family History Reviewed: Yes - Family history of hypertension and diabetes mellitus. Children Family History Reviewed: Yes Sibling(s) Family History Reviewed.: Yes Medication/Allergy Home Medications: Albuterol Sulfate [Proair HFA] 2 puff IH Q4HP PRN 06/06/16 Atorvastatin Calcium 40 mg PO QHS 06/06/16 Fexofenadine HCl 180 mg PO DAILY 06/06/16 Fluticasone Propion/Salmeterol [Advair 250-50 Diskus] 1 puff IH BID 06/06/16 Metformin HCl [Metformin HCl ER] 500 mg PO BID 06/06/16 Montelukast Sodium 10 mg PO QHS 06/06/16 Tamsulosin HCl 0.8 mg PO DAILY 06/06/16 Benazepril HCl [Lotensin 20 mg Tablet] 40 mg PO QAM #60 tablet 06/08/16 Levalbuterol HCl [Xopenex Neb 1.25 mg/3 ml Ampul] 1.25 mg NEB Q4H #60 vial.neb 06/08/16 Levofloxacin [Levaquin 750 mg Tablet] 750 mg PO DAILY #5 tablet 06/08/16 Metoprolol Tartrate [Lopressor 25 mg Tablet] 25 mg PO Q12 #60 tab 06/08/16 Prednisone [Sterapred Ds] 1 pkg PO ASDIR PRN 12 Days tab.ds.pk 06/08/16 Tiotropium Vista [Spiriva Handihaler 18 mcg/dose (30 Dose)] 1 cap IH DAILY #30 capsule 06/08/16 Diazepam [Valium 5 mg Tablet] 5 mg PO Q12H PRN #5 tablet 01/20/18 Meclizine HCl 25 mg PO Q6H PRN #14 tab.chew 01/20/18 Ondansetron [Zofran Odt 4 mg Tablet] 1 - 2 tab PO Q4H PRN #15 tab.rapdis 01/20/18 Esomeprazole Magnesium [Nexium 24Hr] 20 mg PO DAILY #30 capsule. 05/26/19 Prednisone [Deltasone 20 mg Tablet] 3 tab PO DAILY 4 Days #12 tablet 05/26/19 Allergies/Adverse Reactions: iodine Allergy (Verified 09/27/19 16:56) diphenhydramine [From Benadryl] Adverse Reaction (Intermediate, Verified 09/27/19 16:56) ibuprofen [From Motrin] Adverse Reaction (Intermediate, Verified 09/27/19 16:56) Bleeding Review of Systems Constitutional: ABSENT: fatigue, fever(s), headache(s), weakness Eyes: ABSENT: visual disturbances Ears: ABSENT: hearing changes Nose, Mouth, and Throat: ABSENT: sore throat Cardiovascular: PRESENT: palpitations Respiratory: PRESENT: cough, dyspnea Gastrointestinal: ABSENT: coffee ground emesis, constipation, dysphagia, h eartburn, hematochezia Genitourinary: ABSENT: dysuria, hematuria Musculoskeletal: ABSENT: joint swelling Integumentary: ABSENT: lesions, pruritus, rash Neurological: ABSENT: abnormal speech, confusion, convulsions, dizziness, focal weakness, frequent falls, lack of coordination Psychiatric: ABSENT: anxiety, depression, homidical ideation, suicidal ideation Endocrine: ABSENT: cold intolerance, heat intolerance, polydipsia, polyuria Physical Exam Vital Signs: Temp Pulse Resp BP Pulse Ox 98.3 F 123 H 20 152/84 H 95 09/27/19 12:40 09/27/19 13:08 09/27/19 16:44 09/27/19 16:00 09/27/19 16:44 Intake & Output 09/26/19 09/27/19 09/28/19 06:59 06:59 06:59 Intake Total 100 Balance 100 Weight 97.522 kg General appearance: PRESENT: mild distress, morbidly obese Head exam: PRESENT: atraumatic Eye exam: PRESENT: PERRLA Mouth exam: PRESENT: moist, tongue midline Teeth exam: PRESENT: poor dentation Neck exam: ABSENT: carotid bruit, JVD, lymphadenopathy, thyromegaly Respiratory exam: PRESENT: decreased breath sounds, wheezes Cardiovascular exam: PRESENT: tachycardia GI/Abdominal exam: PRESENT: normal bowel sounds, soft. ABSENT: distended, guarding, mass, organolmegaly, rebound, tenderness Rectal exam: PRESENT: deferred Extremities exam: PRESENT: full ROM. ABSENT: calf tenderness, clubbing, pedal edema Neurological exam: PRESENT: alert, awake, oriented to person, oriented to place, oriented to time, oriented to situation, CN II-XII grossly intact. ABSENT: motor sensory deficit Psychiatric exam: PRESENT: appropriate affect, normal mood. ABSENT: homicidal ideation, suicidal ideation Results Laboratory Results: 09/27/19 12:55 09/27/19 12:55 09/27/19 09/27/19 09/27/19 11:51 11:51 12:55 WBC Cancelled 9.8 RBC Cancelled 4.18 L Hgb Cancelled 12.9 L Hct Cancelled 38.5 MCV Cancelled 92 MCH Cancelled 30.8 MCHC Cancelled 33.4 RDW Cancelled 15.0 H Plt Count Cancelled 277 Seg Neutrophils % Cancelled Not Reportable VBG pH VBG pCO2 VBG HCO3 VBG Base Excess Sodium Cancelled Potassium Cancelled Chloride Cancelled Carbon Dioxide Cancelled Anion Gap Cancelled BUN Cancelled Creatinine Cancelled Est GFR ( Amer) Cancelled Est GFR (Non-Af Amer) Cancelled Glucose Cancelled Lactic Acid Calcium Cancelled Total Bilirubin Cancelled AST Cancelled Alkaline Phosphatase Cancelled Total Protein Cancelled Albumin Cancelled Urine Color Urine Appearance Urine pH Ur Specific [place] Urine Protein Urine Glucose (UA) Urine Ketones Urine Blood Urine Nitrite Ur Leukocyte Esterase Urine WBC (Auto) Urine RBC (Auto) 09/27/19 09/27/19 09/27/19 12:55 12:55 12:55 WBC RBC Hgb Hct MCV MCH MCHC RDW Plt Count Seg Neutrophils % VBG pH 7.27 L VBG pCO2 54.5 VBG HCO3 24.7 VBG Base Excess -2.8 Sodium 140.1 Potassium 4.5 Chloride 104 Carbon Dioxide 24 Anion Gap 12 BUN 22 H Creatinine 1.21 Est GFR ( Amer) > 60 Est GFR (Non-Af Amer) Glucose 171 H Lactic Acid 4.0 H Calcium 9.9 Total Bilirubin 0.5 AST 47 Alkaline Phosphatase 77 Total Protein 7.5 Albumin 4.4 Urine Color Urine Appearance Urine pH Ur Specific [place] Urine Protein Urine Glucose (UA) Urine Ketones Urine Blood Urine Nitrite Ur Leukocyte Esterase Urine WBC (Auto) Urine RBC (Auto) 09/27/19 09/27/19 14:11 15:03 WBC RBC Hgb Hct MCV MCH MCHC RDW Plt Count Seg Neutrophils % VBG pH VBG pCO2 VBG HCO3 VBG Base Excess Sodium Potassium Chloride Carbon Dioxide Anion Gap BUN Creatinine Est GFR ( Amer) Est GFR (Non-Af Amer) Glucose Lactic Acid 1.3 Calcium Total Bilirubin AST Alkaline Phosphatase Total Protein Albumin Urine Color YELLOW Urine Appearance CLEAR Urine pH 5.0 Ur Specific [place] 1.009 Urine Protein >=500 H Urine Glucose (UA) 50 H Urine Ketones NEGATIVE Urine Blood MODERATE H Urine Nitrite NEGATIVE Ur Leukocyte Esterase NEGATIVE Urine WBC (Auto) 1 Urine RBC (Auto) 2 09/27/19 09/27/19 09/27/19 11:51 11:51 12:55 Creatine Kinase Cancelled 255 H CK-MB (CK-2) Cancelled Troponin I Cancelled NT-Pro-B Natriuret Pep 09/27/19 09/27/19 12:55 12:55 Creatine Kinase CK-MB (CK-2) 1.94 Troponin I 0.027 NT-Pro-B Natriuret Pep 286 H Cancelled Impressions: Chest X-Ray 09/27/19 12:23 IMPRESSION: Stable coarse bilateral interstitial opacities, likely secondary to interstitial lung disease. No definitive superimposed cardiopulmonary process. Assessment and Plan - Diagnosis (1) Acute respiratory failure with hypoxia Is this a current diagnosis for this admission?: Yes Plan: 09/27/2019-patient is going to be admitted to [facility] as inpatient with a diagnosis of acute hypoxic respiratory failure with hypoxia. To place him on BiPAP on as- needed basis. Started on DuoNeb nebulizations every 4 as needed, flutter valve therapy, Pulmicort therapy. Started on IV Solu-Medrol 40 mg every [address] of the chest was requested because d-dimer is slightly elevated. GI prophylaxis DVT prophylaxis initiated. Started on IV levofloxacin 750 mg daily. (2) COPD with acute exacerbation Is this a current diagnosis for this admission?: Yes Plan: 09/27/19-patient has history of COPD on 2 L of oxygen via nasal cannula home presently he is on BiPAP. On 40% oxygen pulse ox is around 96 to 97%. Patient is still tachypneic and tachycardic at the time of my examination. Started on DuoNeb nebulizations, Pulmicort, flutter valve therapy. Started on prophylactic antibiotic levofloxacin 750 mg daily. (3) Diabetes mellitus type 2 in obese Is this a current diagnosis for this admission?: No Plan: 09/27/2019-patient has history of type 2 diabetes mellitus on metformin at home. To hold metformin at this time and started on insulin sliding scale before meals and at bedtime. Hemoglobin A1c is requested. Diet exercise weight loss lifes tyle modifications discussed with the patient. Dietary consult requested. (4) HTN (hypertension) Qualifiers: Hypertension type: essential hypertension Qualified Code(s): I10 - Essential (primary) hypertension Is this a current diagnosis for this admission?: No Plan: 09/27/2019-patient has history of chronic essential hypertension blood pressure in the ER is 152/84. Patient is on benazepril 20 mg daily, metoprolol 25 mg p.o. daily at home. Those medications are resumed. (5) Morbid obesity Is this a current diagnosis for this admission?: No Plan: 09/27/2019-patient BMI is more than 35 diet exercise weight loss lifestyle modifications discussed with the patient.
[2019-09-27] MEDS ORDERED: METHYLPREDNISOLONE INJ 125 MG/2 ML SDV IV ONE (17:55)
[2019-09-27] MEDS ORDERED: FAMOTIDINE INJ/PF 20 MG/2 ML SDV IV ONE (17:58)
--- NOTE | 2019-09-27 19:15 | RADIOLOGY REPORT (SQ) ---
EXAM DESCRIPTION: CTA CHEST IMAGES COMPLETED DATE/TIME: 09/27/2019 6:56 pm REASON FOR STUDY: r/o PE COMPARISON: 06/06/2016 TECHNIQUE: CT scan of the chest performed using helical scanning technique with dynamic intravenous contrast injection. Images reviewed with lung, soft tissue and bone windows. Reconstructed coronal and sagittal MPR images reviewed. Additional 3 dimensional post-processing performed to develop Maximal Intensity Projection images (MS P). All images stored on PACS. All CT scanners at this facility use dose modulation, iterative reconstruction, and/or weight based d osing when appropriate to reduce radiation dose to as low as reasonably achievable (ALARA). [facility]: Dose Right [facility]: CareDose [facility]: Dose Right [facility]: Teradose 4D [facility]: [employer] CONTRAST TYPE AND DOSE: contrast/concentration: Isovue 350.00 mg/ml; Total Contrast Delivered: 68.0 ml; Total Saline Delivered: 57.0 ml Contrast bolus adequate for pulmonary arteries and aorta. RENAL FUNCTION: GFR > 60. RADIATION DOSE: CT Rad equipment meets quality standard of care and radiation dose reduction techniq ues were employed. CTDIvol: 19.8 - 39.6 mGy. DLP: 1658 mGy-cm. . LIMITATIONS: None. FINDINGS: LUNGS AND PLEURA: Chronic interstitial lung disease with diffuse interlobular septal thick ening. Centrilobular emphysematous changes in the upper lobes. 7 mm part solid nodule right lower l obe image 72. No significant pleural fluid. AORTA AND GREAT VESSELS: No aneurysm. No dissection. HEART: No pericardial effusion. PULMONARY ARTERIES: No emboli visualized in the main pulmonary arteries or the segmental branches. HILAR AND MEDIASTINAL STRUCTURES: 1.5 x 3.0 right hilar node, unchanged. HARDWARE: None in the chest. UPPER ABDOMEN: No significant findings. Limited exam. THYROID AND OTHER SOFT TISSUES: No masses. No adenopathy. BONES: No acute or significant finding. 3D MIPS: Confirm above findings. OTHER: No other significant finding. IMPRESSION: 1. No PE. 2. Chronic interstitial lung disease. Right lower lobe pulmonary nodule. COMMENT: Quality ID # [id number]: Final reports with documentation of one or more dose reduction techniques (e.g., Automated exposure control, adjustment of the mA and/or kV according to patient size, use of iterative reconstruction technique) TECHNICAL DOCUMENTATION: JOB ID: [id number] 2010 [employer]- All Rights Reserved Reading location - IP/workstation name: [email or web address]
[2019-09-27] MEDS: LEVOFLOXACIN 750 MG/D5W RTU 750 MG/150 ML RTUPB IV SCH (19:30)
--- NOTE | 2019-09-27 19:51 | EKG REPORT ---
SEVERITY:- ABNORMAL ECG - SINUS TACHYCARDIA MULTIPLE ATRIAL PREMATURE COMPLEXES : Confirmed by: Steven Addison MD 27-Sep-2019 19:50:38
--- NOTE | 2019-09-27 19:52 | EKG REPORT ---
SEVERITY:- BORDERLINE ECG - SINUS TACHYCARDIA CONSIDER OLD ANTEROSEPTAL AK : Confirmed by: Steven Addison MD 27-Sep-2019 19:51:55
[2019-09-27] MEDS: NORMAL SALINE 1000 ML 1,000 ML IV PRN (21:57)
[2019-09-27] MEDS: METHYLPREDNISOLONE INJ 40 MG/1 ML SDV IV SCH (22:03)
[2019-09-27] MEDS: INSULIN REG, HUMAN 100 UNIT/ML 3 ML VIAL (PYX) SUBCUT SCH (22:07)
[2019-09-27] MEDS: PANTOPRAZOLE SODIUM 40 MG TABLET.DR PO SCH (22:09)
[2019-09-27] MEDS: METOPROLOL TARTRATE 25 MG TABLET PO SCH (22:09)
[2019-09-27] MEDS: HEPARIN SOD (PORCINE) 5,000 UNIT/ML 1 ML VIAL SUBCUT SCH (22:10)
[2019-09-28 03:43] LABS: HEMATOCRIT 36.9 % (37.9-51.0); HEMOGLOBIN 12.5 g/dL (13.5-17.0); MEAN CORPUSCULAR HEMOGLOBIN 30.8 pg (27.0-33.4); MEAN CORPUSCULAR HGB CONC 33.8 g/dL (32.0-36.0); MEAN CORPUSCULAR VOLUME 91 fl (80-97); PLATELET COUNT 227 10^3/uL (150-450); RED BLOOD COUNT 4.06 10^6/uL (4.35-5.55); RED CELL DISTRIBUTION WIDTH 15.1 % (11.5-14.0); WHITE BLOOD COUNT 9.1 10^3/uL (4.0-10.5)
[2019-09-28 04:04] LABS: ALKALINE PHOSPHATASE 64 U/L (38-126); ANION GAP 8 (5-19); ASPARTATE AMINO TRANSFERASE 37 U/L (17-59); BILIRUBIN,TOTAL 0.3 mg/dL (0.2-1.3); BLOOD UREA NITROGEN 27 mg/dL (7-20); CARBON DIOXIDE 25 mmol/L (22-30); CHLORIDE 108 mmol/L (98-107); CHOLESTEROL 149.96 mg/dL (0-200); GLUCOSE 197 mg/dL (75-110); TOTAL PROTEIN 6.7 g/dL (6.3-8.2); TRIGLYCERIDES 133 mg/dL (<150)
[2019-09-28 04:05] LABS: ABSOLUTE LYMPHOCYTES# (MANUAL) 0.5 10^3/uL (0.5-4.7); ABSOLUTE MONOCYTES # (MANUAL) 0.1 10^3/uL (0.1-1.4); BASOPHILS % (MANUAL) 0 % (0-2); EOSINOPHILS % (MANUAL) 0 % (0-6); LYMPHOCYTES % (MANUAL) 5 % (13-45); MONOCYTES % (MANUAL) 1 % (3-13); SEGMENTED NEUTROPHILS % (MAN) 94 % (42-78); TOTAL CELLS COUNTED 100
[2019-09-28 04:06] LABS: ANISOCYTOSIS SLIGHT; PLATELET COMMENT ADEQUATE
[2019-09-28 04:17] LABS: DIRECT LDL 72 mg/dL (<100)
[2019-09-28 04:19] LABS: TROPONIN I 0.033 ng/mL
[2019-09-28] MEDS: PANTOPRAZOLE SODIUM 40 MG TABLET.DR PO SCH ×2 (05:41→18:26)
[2019-09-28] MEDS: METOPROLOL TARTRATE 25 MG TABLET PO SCH ×2 (05:41→18:26)
[2019-09-28] MEDS: METHYLPREDNISOLONE INJ 40 MG/1 ML SDV IV SCH ×3 (05:41→22:26)
[2019-09-28] MEDS: HEPARIN SOD (PORCINE) 5,000 UNIT/ML 1 ML VIAL SUBCUT SCH ×3 (05:41→22:29)
--- NOTE | 2019-09-28 08:20 | PDOC PROGRESS REPORT ---
Subjective Progress Note for:: 09/28/19 Subjective:: 69 year old male with history of COPD on 2 L of oxygen, type 2 diabetes mellitus, morbid obesity, history of colon cancer status post colon resection in 1994, ex-smoker stopped smoking 4 years ago came to the emergency room with complaining of increasing shortness of breath. Shortness of breath associated with occasional cough and continuous wheezing. Denies any fevers denies any nausea vomiting diarrhea or abdominal pain. Denies any headaches dizzy spells. Denies any chest pains. Patient required BiPAP in the emergency room because for tachypnea and pulse ox is around 90% without BiPAP. L consult was called for admission for COPD exacerbation and a COVID test is negative. pt agreed to be in the hospital for further management. 09/[id number]-[id number]-old male with history of COPD, ex-smoker admitted with hypoxia on BiPAP. Patient is still on BiPAP this morning pulse ox is at 98% on 35% oxygen. Comfortable in the bed sleeping well. No complaints. CT chest without contrast was done it shows interstitial lung disease. Presently on IV Solu- Medrol, nebulizer treatments, and levofloxacillin. Reason For Visit: COPD EXACERBATION Physical Exam Vital Signs: Temp Pulse Resp BP Pulse Ox 97.4 F 91 20 147/88 H 96 09/28/19 07:50 09/28/19 08:07 09/28/19 08:07 09/28/19 07:50 09/28/19 08:07 Intake & Output 09/27/19 09/28/19 09/29/19 06:59 06:59 06:59 Intake Total 350 Output Total 1125 Balance -775 Weight 95.9 kg General appearance: PRESENT: no acute distress, obese Head exam: PRESENT: atraumatic Eye exam: PRESENT: PERRLA Mouth exam: PRESENT: neck supple Neck exam: ABSENT: carotid bruit, JVD, lymphadenopathy, thyromegaly Respiratory exam: PRESENT: decreased breath sounds Cardiovascular exam: PRESENT: RRR. ABSENT: diastolic murmur, rubs, systolic murmur GI/Abdominal exam: PRESENT: normal bowel sounds, soft. ABSENT: distended, guarding, mass, organolmegaly, rebound, tenderness Rectal exam: PRESENT: deferred Extremities exam: PRESENT: full ROM. ABSENT: calf tenderness, clubbing, pedal edema Neurological exam: PRESENT: alert, awake, oriented to person, oriented to place, oriented to time, oriented to situation, CN II-XII grossly intact. ABSENT: motor sensory deficit Psychiatric exam: PRESENT: appropriate affect, normal mood. ABSENT: homicidal ideation, suicidal ideation Results Laboratory Results: 09/28/19 03:33 09/28/19 03:33 09/27/19 09/27/19 09/27/19 11:51 11:51 12:55 WBC Cancelled 9.8 RBC Cancelled 4.18 L Hgb Cancelled 12.9 L Hct Cancelled 38.5 MCV Cancelled 92 MCH Cancelled 30.8 MCHC Cancelled 33.4 RDW Cancelled 15.0 H Plt Count Cancelled 277 Seg Neutrophils % Cancelled Not Reportable VBG pH VBG pCO2 VBG HCO3 VBG Base Excess Sodium Cancelled Potassium Cancelled Chloride Cancelled Carbon Dioxide Cancelled Anion Gap Cancelled BUN Cancelled Creatinine Cancelled Est GFR ( Amer) Cancelled Est GFR (Non-Af Amer) Cancelled Glucose Cancelled Lactic Acid Calcium Cancelled Magnesium Total Bilirubin Cancelled AST Cancelled Alkaline Phosphatase Cancelled Total Protein Cancelled Albumin Cancelled Triglycerides Cholesterol LDL Cholesterol Direct VLDL Cholesterol HDL Cholesterol TSH Urine Color Urine Appearance Urine pH Ur Specific [place] Urine Protein Urine Glucose (UA) Urine Ketones Urine Blood Urine Nitrite Ur Leukocyte Esterase Urine WBC (Auto) Urine RBC (Auto) 09/27/19 09/27/19 09/27/19 12:55 12:55 12:55 WBC RBC Hgb Hct MCV MCH MCHC RDW Plt Count Seg Neutrophils % VBG pH 7.27 L VBG pCO2 54.5 VBG HCO3 24.7 VBG Base Excess -2.8 Sodium 140.1 Potassium 4.5 Chloride 104 Carbon Dioxide 24 Anion Gap 12 BUN 22 H Creatinine 1.21 Est GFR ( Amer) > 60 Est GFR (Non-Af Amer) Glucose 171 H Lactic Acid 4.0 H Calcium 9.9 Magnesium Total Bilirubin 0.5 AST 47 Alkaline Phosphatase 77 Total Protein 7.5 Albumin 4.4 Triglycerides Cholesterol LDL Cholesterol Direct VLDL Cholesterol HDL Cholesterol TSH Urine Color Urine Appearance Urine pH Ur Specific [place] Urine Protein Urine Glucose (UA) Urine Ketones Urine Blood Urine Nitrite Ur Leukocyte Esterase Urine WBC (Auto) Urine RBC (Auto) 09/27/19 09/27/19 09/27/19 14:11 15:03 19:13 WBC RBC Hgb Hct MCV MCH MCHC RDW Plt Count Seg Neutrophils % VBG pH VBG pCO2 VBG HCO3 VBG Base Excess Sodium Potassium Chloride Carbon Dioxide Anion Gap BUN Creatinine Est GFR ( Amer) Est GFR (Non-Af Amer) Glucose Lactic Acid 1.3 5.5 H Calcium Magnesium Total Bilirubin AST Alkaline Phosphatase Total Protein Albumin Triglycerides Cholesterol LDL Cholesterol Direct VLDL Cholesterol HDL Cholesterol TSH Urine Color YELLOW Urine Appearance CLEAR Urine pH 5.0 Ur Specific [place] 1.009 Urine Protein >=500 H Urine Glucose (UA) 50 H Urine Ketones NEGATIVE Urine Blood MODERATE H Urine Nitrite NEGATIVE Ur Leukocyte Esterase NEGATIVE Urine WBC (Auto) 1 Urine RBC (Auto) 2 09/27/19 09/28/19 09/28/19 21:17 03:33 03:33 WBC 9.1 RBC 4.06 L Hgb 12.5 L Hct 36.9 L MCV 91 MCH 30.8 MCHC 33.8 RDW 15.1 H Plt Count 227 Seg Neutrophils % Not Reportable VBG pH VBG pCO2 VBG HCO3 VBG Base Excess Sodium 140.9 Potassium 5.0 Chloride 108 H Carbon Dioxide 25 Anion Gap 8 BUN 27 H Creatinine 1.20 Est GFR ( Amer) > 60 Est GFR (Non-Af Amer) Glucose 197 H Lactic Acid 4.1 H Calcium 10.0 Magnesium 2.7 H Total Bilirubin 0.3 AST 37 Alkaline Phosphatase 64 Total Protein 6.7 Albumin 4.0 Triglycerides 133 Cholesterol 149.96 LDL Cholesterol Direct 72 VLDL Cholesterol 27.0 HDL Cholesterol 58 TSH Urine Color Urine Appearance Urine pH Ur Specific [place] Urine Protein Urine Glucose (UA) Urine Ketones Urine Blood Urine Nitrite Ur Leukocyte Esterase Urine WBC (Auto) Urine RBC (Auto) 09/28/19 09/28/19 03:33 03:33 WBC RBC Hgb Hct MCV MCH MCHC RDW Plt Count Seg Neutrophils % VBG pH VBG pCO2 VBG HCO3 VBG Base Excess Sodium Potassium Chloride Carbon Dioxide Anion Gap BUN Creatinine Est GFR ( Amer) Est GFR (Non-Af Amer) Glucose Lactic Acid 1.9 Calcium Magnesium Total Bilirubin AST Alkaline Phosphatase Total Protein Albumin Triglycerides Cholesterol LDL Cholesterol Direct VLDL Cholesterol HDL Cholesterol TSH < 0.01 L Urine Color Urine Appearance Urine pH Ur Specific [place] Urine Protein Urine Glucose (UA) Urine Ketones Urine Blood Urine Nitrite Ur Leukocyte Esterase Urine WBC (Auto) Urine RBC (Auto) 09/27/19 09/27/19 09/27/19 11:51 11:51 12:55 Creatine Kinase Cancelled 255 H CK-MB (CK-2) Cancelled Troponin I Cancelled NT-Pro-B Natriuret Pep 09/27/19 09/27/19 09/27/19 12:55 12:55 19:13 Creatine Kinase CK-MB (CK-2) 1.94 Troponin I 0.027 0.036 NT-Pro-B Natriuret Pep 286 H Cancelled 09/27/19 09/28/19 23:12 03:33 Creatine Kinase CK-MB (CK-2) Troponin I 0.045 0.033 NT-Pro-B Natriuret Pep 518 H Impressions: Chest/Abdomen CTA 09/27/19 00:00 IMPRESSION: 1. No PE. 2. Chronic interstitial lung disease. Right lower lobe pulmonary nodule. Chest X-Ray 09/27/19 12:23 IMPRESSION: Stable coarse bilateral interstitial opacities, likely secondary to interstitial lung disease. No definitive superimposed cardiopulmonary process. Assessment and Plan - Diagnosis (1) Acute respiratory failure with hypoxia Is this a current diagnosis for this admission?: Yes Plan: 09/27/2019-patient is going to be admitted to [facility] as inpatient with a diagnosis of acute hypoxic respiratory failure with hypoxia. To place him on BiPAP on as- needed basis. Started on DuoNeb nebulizations every 4 as needed, flutter valve therapy, Pulmicort therapy. Started on IV Solu-Medrol 40 mg every [address] of the chest was requested because d-dimer is slightly elevated. GI prophylaxis DVT prophylaxis initiated. Started on IV levofloxacin 750 mg daily. 09/28/2019-patient admitted with acute on chronic respiratory failure with hypoxia still on BiPAP this morning. Most likely cause is COPD exacerbation. Plan is to continue IV Solu-Medrol, BiPAP on as needed basis nebulizer treatments and antibiotics. (2) COPD with acute exacerbation Is this a current diagnosis for this admission?: Yes Plan: 09/27/19-patient has history of COPD on 2 L of oxygen via nasal cannula home presently he is on BiPAP. On 40% oxygen pulse ox is around 96 to 97%. Patient is still tachypneic and tachycardic at the time of my examination. Started on DuoNeb nebulizations, Pulmicort, flutter valve therapy. Started on prophylactic antibiotic levofloxacin 750 mg daily. 09/28/2019-patient has history of COPD on 2 L of oxygen came in with hypoxia requiring BiPAP. He is on BiPAP this morning. Plan is to continue the present management at this time. (3) Diabetes mellitus type 2 in obese Is this a current diagnosis for this admission?: No Plan: 09/27/2019-patient has history of type 2 diabetes mellitus on metformin at home. To hold metformin at this time and started on insulin sliding scale before meals and at bedtime. Hemoglobin A1c is requested. Diet exercise weight loss lifes tyle modifications discussed with the patient. Dietary consult requested. 09/28/2019-blood today is 197. Hemoglobin A1c 6.1. Plan is to continue the present management at this time. (4) HTN (hypertension) Qualifiers: Hypertension type: essential hypertension Qualified Code(s): I10 - Essential (primary) hypertension Is this a current diagnosis for this admission?: No Plan: 09/27/2019-patient has history of chronic essential hypertension blood pressure in the ER is 152/84. Patient is on benazepril 20 mg daily, metoprolol 25 mg p.o. daily at home. Those medications are resumed. 09/28/2019-blood pressure today is 142/87. Stable. (5) Morbid obesity Is this a current diagnosis for this admission?: No
[2019-09-28] MEDS: INSULIN REG, HUMAN 100 UNIT/ML 3 ML VIAL (PYX) SUBCUT SCH ×4 (08:36→22:27)
[2019-09-28] MEDS: BENAZEPRIL HCL 20 MG TABLET PO SCH (10:02)
[2019-09-28] MEDS: LEVOFLOXACIN 750 MG/D5W RTU 750 MG/150 ML RTUPB IV SCH (10:03)
[2019-09-28] MEDS: NORMAL SALINE 1000 ML 1,000 ML IV PRN (12:24)
[2019-09-29] MEDS: NORMAL SALINE 1000 ML 1,000 ML IV PRN ×2 (03:20→18:08)
[2019-09-29] MEDS: PANTOPRAZOLE SODIUM 40 MG TABLET.DR PO SCH ×2 (05:31→18:06)
[2019-09-29] MEDS: METOPROLOL TARTRATE 25 MG TABLET PO SCH ×2 (05:31→18:06)
[2019-09-29] MEDS: HEPARIN SOD (PORCINE) 5,000 UNIT/ML 1 ML VIAL SUBCUT SCH ×3 (05:31→21:35)
[2019-09-29] MEDS: METHYLPREDNISOLONE INJ 40 MG/1 ML SDV IV SCH ×2 (05:31→21:35)
[2019-09-29 06:30] LABS: HEMATOCRIT 36.7 % (37.9-51.0); MEAN CORPUSCULAR HGB CONC 32.7 g/dL (32.0-36.0); MEAN CORPUSCULAR VOLUME 92 fl (80-97); PLATELET COUNT 249 10^3/uL (150-450); RED BLOOD COUNT 4.01 10^6/uL (4.35-5.55); RED CELL DISTRIBUTION WIDTH 15.5 % (11.5-14.0)
[2019-09-29 06:47] LABS: ABSOLUTE LYMPHOCYTES# (MANUAL) 0.4 10^3/uL (0.5-4.7); ABSOLUTE MONOCYTES # (MANUAL) 0.3 10^3/uL (0.1-1.4); BASOPHILS % (MANUAL) 0 % (0-2); EOSINOPHILS % (MANUAL) 0 % (0-6); HYPERSEGMENTED NEUTROPHILS PRESENT; LYMPHOCYTES % (MANUAL) 3 % (13-45); MONOCYTES % (MANUAL) 2 % (3-13); SEGMENTED NEUTROPHILS % (MAN) 95 % (42-78); TOTAL CELLS COUNTED 100
[2019-09-29 06:48] LABS: ANISOCYTOSIS SLIGHT; PLATELET COMMENT ADEQUATE; POIKILOCYTOSIS SLIGHT; SCHISTOCYTES SLIGHT
[2019-09-29] MEDS ORDERED: ALBUTEROL SULFATE HFA (90 MCG/PUFF) 8 GM MDI (1 MDI/ER DISP) IH PRN (06:52)
[2019-09-29 06:54] LABS: ALBUMIN 3.7 g/dL (3.5-5.0); ALKALINE PHOSPHATASE 64 U/L (38-126); ANION GAP 6 (5-19); ASPARTATE AMINO TRANSFERASE 72 U/L (17-59); BILIRUBIN,TOTAL 0.3 mg/dL (0.2-1.3); BLOOD UREA NITROGEN 42 mg/dL (7-20); CALCIUM 9.5 mg/dL (8.4-10.2); CARBON DIOXIDE 25 mmol/L (22-30); CHLORIDE 109 mmol/L (98-107); GLUCOSE 179 mg/dL (75-110); POTASSIUM 5.2 mmol/L (3.6-5.0); TOTAL PROTEIN 6.3 g/dL (6.3-8.2)
[2019-09-29] MEDS ORDERED: ALBUTEROL SULFATE HFA (90 MCG/PUFF) 200 PUFF/8.5 GM MDI IH PRN (07:36)
[2019-09-29] MEDS: INSULIN REG, HUMAN 100 UNIT/ML 3 ML VIAL (PYX) SUBCUT SCH ×4 (08:57→21:34)
[2019-09-29] MEDS: LORATADINE 10 MG TABLET PO SCH (09:49)
[2019-09-29] MEDS: UMECLIDINIUM BROMIDE 62.5 MCG/DOSE IH SCH (09:49)
[2019-09-29] MEDS: AMLODIPINE BESYLATE 10 MG TABLET PO SCH (09:49)
[2019-09-29] MEDS: FINASTERIDE 5 MG TABLET PO SCH (09:49)
[2019-09-29] MEDS: TAMSULOSIN HCL 0.4 MG CAP.SR.24H PO SCH (09:49)
[2019-09-29] MEDS: LEVOFLOXACIN 750 MG/D5W RTU 750 MG/150 ML RTUPB IV SCH (09:49)
[2019-09-29] MEDS: BENAZEPRIL HCL 20 MG TABLET PO SCH (09:49)
[2019-09-29] MEDS: LISINOPRIL 10 MG TABLET PO SCH (09:49)
[2019-09-29] MEDS: FLUTICASONE/VILANTEROL 200-25 MCG/DOSE IH SCH (09:50)
[2019-09-29] MEDS ORDERED: (PENDING PHARMACY ID) (Tiotropium Bromide [Spiriva Respimat] 2 PUFF) IH SCH (10:00)
[2019-09-29] MEDS ORDERED: (PENDING PHARMACY ID) (Lisinopril [Zestril] 40 MG) PO SCH (10:00)
[2019-09-29] MEDS ORDERED: (PENDING PHARMACY ID) (Budesonide/Formoterol Fumarate 1 PUFF) IH SCH (10:00)
--- NOTE | 2019-09-29 11:32 | PDOC PROGRESS REPORT ---
Subjective Progress Note for:: 09/29/19 Subjective:: 69 year old male with history of COPD on 2 L of oxygen, type 2 diabetes mellitus, morbid obesity, history of colon cancer status post colon resection in 1994, ex-smoker stopped smoking 4 years ago came to the emergency room with complaining of increasing shortness of breath. Shortness of breath associated with occasional cough and continuous wheezing. Denies any fevers denies any nausea vomiting diarrhea or abdominal pain. Denies any headaches dizzy spells. Denies any chest pains. Patient required BiPAP in the emergency room because for tachypnea and pulse ox is around 90% without BiPAP. L consult was called for admission for COPD exacerbation and a COVID test is negative. pt agreed to be in the hospital for further management. 09/[id number]-npyv-old male with history of COPD, ex-smoker admitted with hypoxia on BiPAP. Patient is still on BiPAP this morning pulse ox is at 98% on 35% oxygen. Comfortable in the bed sleeping well. No complaints. CT chest without contrast was done it shows interstitial lung disease. Presently on IV Solu- Medrol, nebulizer treatments, and levofloxacillin. Reason For Visit: COPD EXACERBATION Physical Exam Vital Signs: Temp Pulse Resp BP Pulse Ox 97.5 F 28 L 22 H 164/83 H 97 09/29/19 07:43 09/29/19 09:07 09/29/19 09:07 09/29/19 07:43 09/29/19 09:07 Intake & Output 09/28/19 09/29/19 09/30/19 06:59 06:59 06:59 Intake Total 350 4905 Output Total 1125 1885 Balance -775 3020 Weight 95.9 kg 101.2 kg General appearance: PRESENT: no acute distress, morbidly obese, other - On BiPAP Head exam: PRESENT: atraumatic Eye exam: PRESENT: PERRLA Mouth exam: PRESENT: moist, tongue midline Teeth exam: PRESENT: poor dentation Neck exam: ABSENT: carotid bruit, JVD, lymphadenopathy, thyromegaly Respiratory exam: PRESENT: decreased breath sounds Cardiovascular exam: PRESENT: RRR. ABSENT: diastolic murmur, rubs, systolic murmur Vascular exam: PRESENT: normal capillary refill GI/Abdominal exam: PRESENT: normal bowel sounds, soft. ABSENT: distended, guarding, mass, organolmegaly, rebound, tenderness Rectal exam: PRESENT: deferred Extremities exam: PRESENT: full ROM. ABSENT: calf tenderness, clubbing, pedal edema Neurological exam: PRESENT: alert, awake, oriented to person, oriented to place, oriented to time, oriented to situation, CN II-XII grossly intact. ABSENT: motor sensory deficit Psychiatric exam: PRESENT: appropriate affect, normal mood. ABSENT: homicidal ideation, suicidal ideation Results Laboratory Results: 09/29/19 06:05 09/29/19 06:05 09/29/19 09/29/19 06:05 06:05 WBC 14.0 H RBC 4.01 L Hgb 12.0 L Hct 36.7 L MCV 92 MCH 30.0 MCHC 32.7 RDW 15.5 H Plt Count 249 Seg Neutrophils % Not Reportable Sodium 139.8 Potassium 5.2 H Chloride 109 H Carbon Dioxide 25 Anion Gap 6 BUN 42 H Creatinine 1.31 H Est GFR ( Amer) > 60 Glucose 179 H Calcium 9.5 Magnesium 2.8 H Total Bilirubin 0.3 AST 72 H Alkaline Phosphatase 64 Total Protein 6.3 Albumin 3.7 09/27/19 09/27/19 09/27/19 11:51 11:51 12:55 Creatine Kinase Cancelled 255 H CK-MB (CK-2) Cancelled Troponin I Cancelled NT-Pro-B Natriuret Pep 09/27/19 09/27/19 09/27/19 12:55 12:55 19:13 Creatine Kinase CK-MB (CK-2) 1.94 Troponin I 0.027 0.036 NT-Pro-B Natriuret Pep 286 H Cancelled 09/27/19 09/28/19 23:12 03:33 Creatine Kinase CK-MB (CK-2) Troponin I 0.045 0.033 NT-Pro-B Natriuret Pep 518 H Impressions: Chest/Abdomen CTA 09/27/19 00:00 IMPRESSION: 1. No PE. 2. Chronic interstitial lung disease. Right lower lobe pulmonary nodule. Chest X-Ray 09/27/19 12:23 IMPRESSION: Stable coarse bilateral interstitial opacities, likely secondary to interstitial lung disease. No definitive superimposed cardiopulmonary process. Assessment and Plan - Diagnosis (1) Acute respiratory failure with hypoxia Is this a current diagnosis for this admission?: Yes Plan: 09/27/2019-patient is going to be admitted to [facility] as inpatient with a diagnosis of acute hypoxic respiratory failure with hypoxia. To place him on BiPAP on as- needed basis. Started on DuoNeb nebulizations every 4 as needed, flutter valve therapy, Pulmicort therapy. Started on IV Solu-Medrol 40 mg every [address] of the chest was requested because d-dimer is slightly elevated. GI prophylaxis DVT prophylaxis initiated. Started on IV levofloxacin 750 mg daily. 09/28/2019-patient admitted with acute on chronic respiratory failure with hypoxia still on BiPAP this morning. Most likely cause is COPD exacerbation. Plan is to continue IV Solu-Medrol, BiPAP on as needed basis nebulizer treatments and antibiotics. 09/29/2019-patient still on BiPAP this morning. Doing much better. Pulse ox is 97%. Plan is to decrease the IV Solu-Medrol to every 12 hours. Continue other treatment. (2) COPD with acute exacerbation Is this a current diagnosis for this admission?: Yes Plan: 09/27/19-patient has history of COPD on 2 L of oxygen via nasal cannula home presently he is on BiPAP. On 40% oxygen pulse ox is around 96 to 97%. Patient is still tachypneic and tachycardic at the time of my examination. Started on DuoNeb nebulizations, Pulmicort, flutter valve therapy. Started on prophylactic antibiotic levofloxacin 750 mg daily. 09/28/2019-patient has history of COPD on 2 L of oxygen came in with hypoxia requiring BiPAP. He is on BiPAP this morning. Plan is to continue the present management at this time. 09/29/19-patient has history of COPD, on CPAP at home and 2 L of oxygen. Admitted with COPD exacerbation. Resolving. (3) Diabetes mellitus type 2 in obese Is this a current diagnosis for this admission?: No Plan: 09/27/2019-patient has history of type 2 diabetes mellitus on metformin at home. To hold metformin at this time and started on insulin sliding scale before meals and at bedtime. Hemoglobin A1c is requested. Diet exercise weight loss lifestyle modifications discussed with the patient. Dietary consult requested. 09/28/2019-blood today is 197. Hemoglobin A1c 6.1. Plan is to continue the present management at this time. 09/29/2019-latest blood sugar is 238 with a hemoglobin A1c of 6.1. Presently on IV Solu-Medrol 40 mg every 8 hours plan is to decrease the dose to every 12 hours. (4) HTN (hypertension) Qualifiers: Hypertension type: essential hypertension Qualified Code(s): I10 - Essential (primary) hypertension Is this a current diagnosis for this admission?: No Plan: 09/27/2019-patient has history of chronic essential hypertension blood pressure in the ER is 152/84. Patient is on benazepril 20 mg daily, metoprolol 25 mg p.o. daily at home. Those medications are resumed. 09/28/2019-blood pressure today is 142/87. Stable. 09/29/2019-blood pressure today is 158/96. Continue metoprolol 25 mg p.o. daily, benazepril 20 mg p.o. daily. On low-salt diet. (5) Morbid obesity Is this a current diagnosis for this admission?: No Plan: 09/27/2019-patient BMI is more than 35 diet exercise weight loss lifestyle modifications discussed with the patient.
[2019-09-29] MEDS ORDERED: MONTELUKAST SODIUM 10 MG TABLET PO SCH (22:00)
[2019-09-29] MEDS ORDERED: ATORVASTATIN CALCIUM 40 MG TABLET PO SCH (22:00)
[2019-09-30] MEDS: HEPARIN SOD (PORCINE) 5,000 UNIT/ML 1 ML VIAL SUBCUT SCH (06:00)
[2019-09-30] MEDS: NORMAL SALINE 1000 ML 1,000 ML IV PRN (06:00)
[2019-09-30] MEDS: METOPROLOL TARTRATE 25 MG TABLET PO SCH (06:01)
[2019-09-30] MEDS: PANTOPRAZOLE SODIUM 40 MG TABLET.DR PO SCH (06:01)
[2019-09-30 06:19] LABS: HEMATOCRIT 36.1 % (37.9-51.0); HEMOGLOBIN 11.9 g/dL (13.5-17.0); MEAN CORPUSCULAR HEMOGLOBIN 30.5 pg (27.0-33.4); MEAN CORPUSCULAR HGB CONC 33.1 g/dL (32.0-36.0); MEAN CORPUSCULAR VOLUME 92 fl (80-97); PLATELET COUNT 240 10^3/uL (150-450); RED BLOOD COUNT 3.92 10^6/uL (4.35-5.55); RED CELL DISTRIBUTION WIDTH 15.4 % (11.5-14.0); WHITE BLOOD COUNT 10.5 10^3/uL (4.0-10.5)
[2019-09-30 06:40] LABS: ABSOLUTE LYMPHOCYTES# (MANUAL) 0.5 10^3/uL (0.5-4.7); ABSOLUTE MONOCYTES # (MANUAL) 0.4 10^3/uL (0.1-1.4); ANISOCYTOSIS 1+; BAND NEUTROPHILS % (MANUAL) 1 % (3-5); BASOPHILS % (MANUAL) 0 % (0-2); EOSINOPHILS % (MANUAL) 0 % (0-6); LYMPHOCYTES % (MANUAL) 5 % (13-45); MONOCYTES % (MANUAL) 4 % (3-13); PLATELET COMMENT ADEQUATE; POLYCHROMASIA 1+; SEGMENTED NEUTROPHILS % (MAN) 90 % (42-78); TOTAL CELLS COUNTED 100
[2019-09-30 06:45] LABS: ALBUMIN 3.5 g/dL (3.5-5.0); ALKALINE PHOSPHATASE 59 U/L (38-126); ANION GAP 5 (5-19); ASPARTATE AMINO TRANSFERASE 69 U/L (17-59); BILIRUBIN,TOTAL 0.4 mg/dL (0.2-1.3); BLOOD UREA NITROGEN 37 mg/dL (7-20); CALCIUM 9.2 mg/dL (8.4-10.2); CARBON DIOXIDE 26 mmol/L (22-30); CHLORIDE 109 mmol/L (98-107); GLUCOSE 182 mg/dL (75-110); POTASSIUM 5.1 mmol/L (3.6-5.0); TOTAL PROTEIN 5.9 g/dL (6.3-8.2)
[2019-09-30] MEDS: INSULIN REG, HUMAN 100 UNIT/ML 3 ML VIAL (PYX) SUBCUT SCH (07:57)
[2019-09-30] MEDS: METHYLPREDNISOLONE INJ 40 MG/1 ML SDV IV SCH (08:59)
[2019-09-30] MEDS: FINASTERIDE 5 MG TABLET PO SCH (09:01)
[2019-09-30] MEDS: LORATADINE 10 MG TABLET PO SCH (09:01)
[2019-09-30] MEDS: BENAZEPRIL HCL 20 MG TABLET PO SCH (09:01)
[2019-09-30] MEDS: TAMSULOSIN HCL 0.4 MG CAP.SR.24H PO SCH (09:01)
[2019-09-30] MEDS: LISINOPRIL 10 MG TABLET PO SCH (09:01)
[2019-09-30] MEDS: AMLODIPINE BESYLATE 10 MG TABLET PO SCH (09:01)
[2019-09-30] MEDS: FLUTICASONE/VILANTEROL 200-25 MCG/DOSE IH SCH (09:02)
[2019-09-30] MEDS: UMECLIDINIUM BROMIDE 62.5 MCG/DOSE IH SCH (09:02)
[2019-09-30 09:39] VITALS: BP 142/80
[2019-09-30] MEDS ORDERED: LEVOFLOXACIN 750 MG TABLET PO SCH (10:00)
--- NOTE | 2019-09-30 10:06 | PDOC DISCHARGE SUMMARY ---
Impression - Admit/DC Date/PCP Admission Date/Primary Care Provider: 09/27/19 16:42 Discharge Date: 09/30/19 - Discharge Diagnosis (1) Acute respiratory failure with hypoxia Is this a current diagnosis for this admission?: Yes (2) COPD with acute exacerbation Is this a current diagnosis for this admission?: Yes (3) Diabetes mellitus type 2 in obese Is this a current diagnosis for this admission?: No (4) HTN (hypertension) Is this a current diagnosis for this admission?: No (5) Morbid obesity Is this a current diagnosis for this admission?: No - Assessment Summary: (1) Acute respiratory failure with hypoxia Is this a current diagnosis for this admission?: Yes Plan: 09/27/2019-patient is going to be admitted to [facility] as inpatient with a diagnosis of acute hypoxic respiratory failure with hypoxia. To place him on BiPAP on as- needed basis. Started on DuoNeb nebulizations every 4 as needed, flutter valve therapy, Pulmicort therapy. Started on IV Solu-Medrol 40 mg every [address] of the chest was requested because d-dimer is slightly elevated. GI prophylaxis DVT prophylaxis initiated. Started on IV levofloxacin 750 mg daily. 09/28/2019-patient admitted with acute on chronic respiratory failure with hypoxia still on BiPAP this morning. Most likely cause is COPD exacerbation. Plan is to continue IV Solu-Medrol, BiPAP on as needed basis nebulizer treatments and antibiotics. 09/29/2019-patient still on BiPAP this morning. Doing much better. Pulse ox is 97%. Plan is to decrease the IV Solu-Medrol to every 12 hours. Continue other treatment. 09/30/2019-on oxygen supplementation this morning doing well. I requested the patient to stay at least another day for further improvement. Patient responded that he is doing very well he prefers to go home and use the BiPAP and oxygen supplementations at home. [facility] also [facility]. (2) COPD with acute exacerbation Is this a current diagnosis for this admission?: Yes Plan: 09/27/19-patient has history of COPD on 2 L of oxygen via nasal cannula home presently he is on BiPAP. On 40% oxygen pulse ox is around 96 to 97%. Patient is still tachypneic and tachycardic at the time of my examination. Started on DuoNeb nebulizations, Pulmicort, flutter valve therapy. Started on prophylactic antibiotic levofloxacin 750 mg daily. 09/28/2019-patient has history of COPD on 2 L of oxygen came in with hypoxia requiring BiPAP. He is on BiPAP this morning. Plan is to continue the present management at this time. 09/29/19-patient has history of COPD, on CPAP at home and 2 L of oxygen. Admitted with COPD exacerbation. Resolving. 09/30/2019-patient has history of COPD admitted with COPD exacerbation resolving. Pulse ox is 96% 3 L this morning. Just came back negative is going home on levofloxacin 750 mg p.o. daily for 1 week. (3) Diabetes mellitus type 2 in obese Is this a current diagnosis for this admission?: No Plan: 09/27/2019-patient has history of type 2 diabetes mellitus on metformin at home. To hold metformin at this time and started on insulin sliding scale before meals and at bedtime. Hemoglobin A1c is requested. Diet exercise weight loss lifestyle modifications discussed with the patient. Dietary consult requested. 09/28/2019-blood today is 197. Hemoglobin A1c 6.1. Plan is to continue the present management at this time. 09/29/2019-latest blood sugar is 238 with a hemoglobin A1c of 6.1. Presently on IV Solu-Medrol 40 mg every 8 hours plan is to decrease the dose to every 12 hours. 09/30/2019-patient has history of type 2 diabetes mellitus plan is to resume his home medications his blood sugar is 182 during the hospital stay. (4) HTN (hypertension) Qualifiers: Hypertension type: essential hypertension Qualified Code(s): I10 - Essential (primary) hypertension Is this a current diagnosis for this admission?: No Plan: 09/27/2019-patient has history of chronic essential hypertension blood pressure in the ER is 152/84. Patient is on benazepril 20 mg daily, metoprolol 25 mg p.o. daily at home. Those medications are resumed. 09/28/2019-blood pressure today is 142/87. Stable. 09/29/2019-blood pressure today is 158/96. Continue metoprolol 25 mg p.o. daily, benazepril 20 mg p.o. daily. On low-salt diet. 09/30/2019-blood pressure today is 132/63 stable. Patient is advised to resume his home medications. (5) Morbid obesity Is this a current diagnosis for this admission?: No Plan: 09/27/2019-patient BMI is more than 35 diet exercise weight loss lifestyle modifications discussed with the patient. - Additional Information Resuscitation Status: Full Code Discharge Diet: Cardiac, Diabetic Discharge Activity: Activity As Tolerated Prescriptions: Levofloxacin [Levaquin 750 mg Tablet] 750 mg PO DAILY #7 tablet Home Medications: Albuterol Sulfate [Proair HFA] 2 puff IH Q4HP PRN 06/06/16 Atorvastatin Calcium 40 mg PO QHS 06/06/16 Montelukast Sodium 10 mg PO QHS 06/06/16 Tamsulosin HCl 0.8 mg PO DAILY 06/06/16 Amlodipine Besylate [Norvasc 10 mg Tablet] 10 mg PO DAILY 09/28/19 Budesonide/Formoterol Fumarate [Symbicort HFA 160-4.5 mcg Inhaler 6 gm] 1 puff IH Q12 09/28/19 Finasteride [Proscar 5 mg Tablet] 5 mg PO DAILY 09/28/19 Lisinopril [Zestril] 40 mg PO DAILY 09/28/19 Loratadine [Claritin 10 mg Tablet] 10 mg PO DAILY 09/28/19 Sitagliptin Phos/Metformin HCl [Janumet 50-500 mg Tablet] 1 each PO BID 09/28/19 Tiotropium [place] [Spiriva Respimat] 2 puff IH DAILY 09/28/19 Levofloxacin [Levaquin 750 mg Tablet] 750 mg PO DAILY #7 tablet 09/30/19 History of Present Illiness History of Present Illness: MARTÍN SILVA is a 69 year old male with history of COPD on 2 L of oxygen, type 2 diabetes mellitus, morbid obesity, history of colon cancer status post colon resection in 1994, ex-smoker stopped smoking 4 years ago came to the emergency room with complaining of increasing shortness of breath. Shortness of breath associated with occasional cough and continuous wheezing. Denies any fevers denies any nausea vomiting diarrhea or abdominal pain. Denies any headaches di zzy spells. Denies any chest pains. Patient required BiPAP in the emergency room because for tachypnea and pulse ox is around 90% without BiPAP. L consult was called for admission for COPD exacerbation and a COVID test is negative. pt agreed to be in the hospital for further management. Hospital Course Hospital Course: 69 year old male with history of COPD on 2 L of oxygen, type 2 diabetes mellitus, morbid obesity, history of colon cancer status post colon resection in 1994, ex-smoker stopped smoking 4 years ago came to the emergency room with comp laining of increasing shortness of breath. Shortness of breath associated with occasional cough and continuous wheezing. Denies any fevers denies any nausea vomiting diarrhea or abdominal pain. Denies any headaches dizzy spells. Denies any chest pains. Patient required BiPAP in the emergency room because for tachypnea and pulse ox is around 90% without BiPAP. L consult was called for admission for COPD exacerbation and a COVID test is negative. pt agreed to be in the hospital for further management. 09/28/[id number]-xtrl-old male with history of COPD, ex-smoker admitted with hypoxia on BiPAP. Patient is still on BiPAP this morning pulse ox is at 98% on 35% oxygen. Comfortable in the bed sleeping well. No complaints. CT chest without contrast was done it shows interstitial lung disease. Presently on IV Solu- Medrol, nebulizer treatments, and levofloxacillin. Physical Exam Vital Signs: Temp Pulse Resp BP Pulse Ox 97.3 F 51 L 17 142/80 H 99 09/30/19 09:39 09/30/19 09:39 09/30/19 09:39 09/30/19 09:39 09/30/19 09:39 Intake & Output 09/29/19 09/30/19 10/01/19 06:59 06:59 06:59 Intake Total 4905 3560 Output Total 1885 4350 Balance 3020 -790 Weight 101.2 kg 101.1 kg General appearance: PRESENT: no acute distress, obese Head exam: PRESENT: atraumatic Eye exam: PRESENT: PERRLA Mouth exam: PRESENT: moist, tongue midline Teeth exam: PRESENT: poor dentation Neck exam: ABSENT: carotid bruit, JVD, lymphadenopathy, thyromegaly Respiratory exam: PRESENT: decreased breath sounds Cardiovascular exam: PRESENT: RRR. ABSENT: diastolic murmur, rubs, systolic murmur GI/Abdominal exam: PRESENT: normal bowel sounds, soft. ABSENT: distended, guarding, mass, organolmegaly, rebound, tenderness Rectal exam: PRESENT: deferred Neurological exam: PRESENT: alert, awake, oriented to person, oriented to place, oriented to time, oriented to situation, CN II-XII grossly intact. ABSENT: motor sensory deficit Psychiatric exam: PRESENT: appropriate affect, normal mood. ABSENT: homicidal ideation, suicidal ideation Results Laboratory Results: WBC 10.5 10^3/uL (4.0-10.5) 09/30/19 05:38 RBC 3.92 10^6/uL (4.35-5.55) L 09/30/19 05:38 Hgb 11.9 g/dL (13.5-17.0) L 09/30/19 05:38 Hct 36.1 % (37.9-51.0) L 09/30/19 05:38 MCV 92 fl (80-97) 09/30/19 05:38 MCH 30.5 pg (27.0-33.4) 09/30/19 05:38 MCHC 33.1 g/dL (32.0-36.0) 09/30/19 05:38 RDW 15.4 % (11.5-14.0) H 09/30/19 05:38 Plt Count 240 10^3/uL (150-450) 09/30/19 05:38 Lymph % (Auto) Not Reportable 09/30/19 05:38 [place] % (Auto) Not Reportable 09/30/19 05:38 Eos % (Auto) Not Reportable 09/30/19 05:38 Baso % (Auto) Not Reportable 09/30/19 05:38 Absolute Neuts (auto) Not Reportable 09/30/19 05:38 Absolute Lymphs (auto) Not Reportable 09/30/19 05:38 Absolute Monos (auto) Not Reportable 09/30/19 05:38 Absolute Eos (auto) Not Reportable 09/30/19 05:38 Absolute Basos (auto) Not Reportable 09/30/19 05:38 Total Counted 100 09/30/19 05:38 Seg Neutrophils % Not Reportable 09/30/19 05:38 Seg Neuts % (Manual) 90 % (42-78) H 09/30/19 05:38 Band Neutrophils % 1 % (3-5) L 09/30/19 05:38 Lymphocytes % (Manual) 5 % (13-45) L 09/30/19 05:38 Monocytes % (Manual) 4 % (3-13) 09/30/19 05:38 Eosinophils % (Manual) 0 % (0-6) 09/30/19 05:38 Basophils % (Manual) 0 % (0-2) 09/30/19 05:38 Abs Neuts (Manual) 9.6 10^3/uL (1.7-8.2) H 09/30/19 05:38 Abs Lymphs (Manual) 0.5 10^3/uL (0.5-4.7) 09/30/19 05:38 Abs Monocytes (Manual) 0.4 10^3/uL (0.1-1.4) 09/30/19 05:38 Absolute Eos (Manual) 0.0 10^3/uL (0.0-0.6) 09/30/19 05:38 Abs Basophils (Manual) 0.0 10^3/uL (0.0-0.2) 09/30/19 05:38 Hypersegmented Neuts PRESENT 09/29/19 06:05 Platelet Estimate Cancelled 09/27/19 11:51 Clumped Platelets PRESENT 09/27/19 12:55 Platelet Comment ADEQUATE 09/30/19 05:38 Polychromasia 1+ 09/30/19 05:38 Poikilocytosis SLIGHT 09/29/19 06:05 Anisocytosis 1+ 09/30/19 05:38 Schistocytes SLIGHT 09/29/19 06:05 RBC Morph Comment NORMO-CYTIC/CHROMIC 09/27/19 12:55 PT 13.3 SEC (11.4-15.4) 09/27/19 12:55 PT Cancelled 09/27/19 12:55 INR 1.01 09/27/19 12:55 INR Cancelled 09/27/19 12:55 INR (Anticoag Therapy) Cancelled 09/27/19 12:55 APTT 29.9 SEC (23.5-35.8) 09/27/19 12:55 D-Dimer 0.82 ug/mL (0.00-0.50) H 09/27/19 12:55 VBG pH 7.27 (7.30-7.42) L 09/27/19 12:55 VBG pCO2 54.5 mmHg (35-63) 09/27/19 12:55 VBG HCO3 24.7 mmol/L (20-32) 09/27/19 12:55 VBG Base Excess -2.8 mmol/L 09/27/19 12:55 Sodium 139.5 mmol/L (137-145) 09/30/19 05:38 Potassium 5.1 mmol/L (3.6-5.0) H 09/30/19 05:38 Chloride 109 mmol/L (98-107) H 09/30/19 05:38 Carbon Dioxide 26 mmol/L (22-30) 09/30/19 05:38 Anion Gap 5 (5-19) 09/30/19 05:38 BUN 37 mg/dL (7-20) H 09/30/19 05:38 Creatinine 1.10 mg/dL (0.52-1.25) 09/30/19 05:38 Est GFR ( Amer) > 60 (>60) 09/30/19 05:38 Est GFR (Non-Af Amer) Cancelled 09/27/19 11:51 Est GFR (MDRD) Non-Af > 60 (>60) 09/30/19 05:38 Glucose 182 mg/dL (75-110) H 09/30/19 05:38 POC Glucose 160 mg/dL (70-110) H 09/30/19 07:33 Hemoglobin A1c % 6.1 % (4.7-6.0) H 09/28/19 03:33 Lactic Acid 1.9 mmol/L (0.7-2.1) 09/28/19 03:33 Calcium 9.2 mg/dL (8.4-10.2) 09/30/19 05:38 Magnesium 2.6 mg/dL (1.6-2.3) H 09/30/19 05:38 Total Bilirubin 0.4 mg/dL (0.2-1.3) 09/30/19 05:38 Direct Bilirubin 0.0 mg/dL (0.0-0.4) 09/30/19 05:38 Neonat Total Bilirubin Not Reportable 09/30/19 05:38 Neonat Direct Bilirubin Not Reportable 09/30/19 05:38 Neonat Indirect Bili Not Reportable 09/30/19 05:38 AST 69 U/L (17-59) H 09/30/19 05:38 ALT 244 U/L (<50) H 09/30/19 05:38 Alkaline Phosphatase 59 U/L (38-126) 09/30/19 05:38 Creatine Kinase 255 U/L (55-170) H 09/27/19 12:55 CK-MB (CK-2) 1.94 ng/mL (<4.55) 09/27/19 12:55 Troponin I 0.033 ng/mL 09/28/19 03:33 NT-Pro-B Natriuret Pep 518 pg/mL (<125) H 09/28/19 03:33 Total Protein 5.9 g/dL (6.3-8.2) L 09/30/19 05:38 Albumin 3.5 g/dL (3.5-5.0) 09/30/19 05:38 Triglycerides 133 mg/dL (<150) 09/28/19 03:33 Cholesterol 149.96 mg/dL (0-200) 09/28/19 03:33 LDL Cholesterol Direct 72 mg/dL (<100) 09/28/19 03:33 VLDL Cholesterol 27.0 mg/dL (10-31) 09/28/19 03:33 HDL Cholesterol 58 mg/dL (>40) 09/28/19 03:33 EGFR Cancelled 09/27/19 11:51 TSH < 0.01 uIU/mL (0.47-4.68) L 09/28/19 03:33 Urine Color YELLOW 09/27/19 14:11 Urine Appearance CLEAR 09/27/19 14:11 Urine pH 5.0 (5.0-9.0) 09/27/19 14:11 Ur Specific [place] 1.009 09/27/19 14:11 Urine Protein >=500 mg/dL (NEGATIVE) H 09/27/19 14:11 Urine Glucose (UA) 50 mg/dL (NEGATIVE) H 09/27/19 14:11 Urine Ketones NEGATIVE mg/dL (NEGATIVE) 09/27/19 14:11 Urine Blood MODERATE (NEGATIVE) H 09/27/19 14:11 Urine Nitrite NEGATIVE (NEGATIVE) 09/27/19 14:11 Urine Bilirubin NEGATIVE (NEGATIVE) 09/27/19 14:11 Urine Urobilinogen NEGATIVE mg/dL (<2.0) 09/27/19 14:11 Ur Leukocyte Esterase NEGATIVE (NEGATIVE) 09/27/19 14:11 Urine WBC (Auto) 1 /HPF 09/27/19 14:11 Urine RBC (Auto) 2 /HPF 09/27/19 14:11 Urine Bacteria (Auto) TRACE /HPF 09/27/19 14:11 Squamous Epi Cells Auto <1 /HPF 09/27/19 14:11 Urine Mucus (Auto) RARE /LPF 09/27/19 14:11 Urine Ascorbic Acid NEGATIVE (NEGATIVE) 09/27/19 14:11 COVID-19 Source Cancelled 09/27/19 13:48 COVID-19 (JOSE DANIEL) Cancelled 09/27/19 13:48 Influenza A (Rapid) NEGATIVE (NEGATIVE) 09/27/19 13:25 Influenza B (Rapid) NEGATIVE (NEGATIVE) 09/27/19 13:25 SARS-CoV-2 (PCR) NEGATIVE (NEGATIVE) 09/27/19 13:48 Group A Strep Rapid NEGATIVE (NEGATIVE) 09/27/19 13:25 Slides for Path Review Cancelled 09/27/19 11:51 09/27/19 09/27/19 09/27/19 11:51 12:55 12:55 CK-MB (CK-2) Cancelled 1.94 Troponin I Cancelled 0.027 NT-Pro-B Natriuret Pep 286 H Cancelled 09/27/19 09/27/19 09/28/19 19:13 23:12 03:33 CK-MB (CK-2) Troponin I 0.036 0.045 0.033 NT-Pro-B Natriuret Pep 518 H Impressions: Chest/Abdomen CTA 09/27/19 00:00 IMPRESSION: 1. No PE. 2. Chronic interstitial lung disease. Right lower lobe pulmonary nodule. Chest X-Ray 09/27/19 12:23 IMPRESSION: Stable coarse bilateral interstitial opacities, likely secondary to interstitial lung disease. No definitive superimposed cardiopulmonary process. Plan Plan of Treatment: Patient is advised to be compliant with the BiPAP machine and also continue to use oxygen at home. He was also [facility]. Given a prescription for levofloxacin 750 mg daily for 7 days. Patient agreed with the plan and verbalized response. Time Spent: Greater than 30 Minutes Stroke Is this a Stroke Patient?: No Acute Heart Failure - Is this a Heart Failure Patient?: No
== END 2019-09-30 10:15 | disposition home or self-care (01) | DRG 189 ==
LOC: ER 12:18 → EH 16:42 → 3W 19:18
PROVIDERS: ADMIT Internal Medicine; ATTEND Internal Medicine
PROC: 5A09457 Assistance with Respiratory Ventilation, 24-96 Consecutive Hours, Continuous Positive Airway Pressure (ICD-10-PCS; principal; 2019-09-27)
DX: J96.21 Acute and chronic respiratory failure with hypoxia (principal); J44.1 Chronic obstructive pulmonary disease with (acute) exacerbation; E11.9 Type 2 diabetes mellitus without complications; I10 Essential (primary) hypertension; E66.01 Morbid (severe) obesity due to excess calories; Z99.81 Dependence on supplemental oxygen; Z79.84 Long term (current) use of oral hypoglycemic drugs; Z90.49 Acquired absence of other specified parts of digestive tract; Z85.038 Personal history of other malignant neoplasm of large intestine; Z87.891 Personal history of nicotine dependence; Z83.3 Family history of diabetes mellitus; Z82.49 Family history of ischemic heart disease and other diseases of the circulatory system; Z88.8 Allergy status to other drugs, medicaments and biological substances; Z88.6 Allergy status to analgesic agent; Z68.35 Body mass index [BMI] 35.0-35.9, adult
CPT/HCPCS: 36415; 71045; 71275; 80053; 80061; 81001; 82550; 82553; 82803; 82962; 83036; 83605; 83735; 83880; 84443; 84484; 85025; 85379; 85610; 85730; 87040; 87070; 87635; 87804; 87880; 93005; 93010; 94640; 94660; 94667; 96365; 99285; J1644; J1815; J1956; J2920; J2930; J3475; J3490; J7030; J7620